=== PATIENT | male | born 1955 | race Caucasian/White ===

== ENCOUNTER → 2023-09-03 08:11 | Outpatient (REF) | payer MEDICARE, OTHER, SELFPAY | LOC: DHCBC HW 08:11 | PROVIDERS: ATTENDING PHYSICIAN Internal Medicine Cardiovascular Disease; FAMILY PHYSICIAN Physician Assistant | DX: I48.0 Paroxysmal atrial fibrillation (principal) | CPT/HCPCS: 93306 ==

== ENCOUNTER 2023-09-23 09:04 | Day surgery (SDC) | payer MEDICARE, OTHER, SELFPAY ==
[2023-09-04 10:05] VITALS: BMI 36.4
[2023-09-23 10:22] VITALS: BMI 37.0
== END 2023-09-23 10:40 | disposition home or self-care (01) ==
LOC: CATH 09:04
PROVIDERS: ATTENDING PHYSICIAN Internal Medicine Cardiovascular Disease; FAMILY PHYSICIAN Physician Assistant
DX: I48.0 Paroxysmal atrial fibrillation (principal); I10 Essential (primary) hypertension; Z72.0 Tobacco use; E66.9 Obesity, unspecified; Z68.36 Body mass index [BMI] 36.0-36.9, adult; Z82.49 Family history of ischemic heart disease and other diseases of the circulatory system; Z79.01 Long term (current) use of anticoagulants
CPT/HCPCS: 92960; 93005

== ENCOUNTER → 2024-08-04 14:49 | Outpatient (REF) | payer MEDICARE, OTHER, SELFPAY | LOC: MRI 3T 14:49 | PROVIDERS: ATTENDING PHYSICIAN Urology; FAMILY PHYSICIAN Family Medicine | DX: N28.89 Other specified disorders of kidney and ureter (principal); N28.1 Cyst of kidney, acquired | CPT/HCPCS: 74183; A9575 ==

== ENCOUNTER 2025-03-04 10:59 | Inpatient (IN) | payer MEDICARE, OTHER, SELFPAY ==
[2025-03-01] VITALS (12 sets, daily range): BP systolic 120–152; BP diastolic 75–104
[2025-03-01 09:11] LABS: Hematocrit 51.2 % (39.0-52.0); Hemoglobin 17.6 g/dL (13.0-18.0); Mean Corp Hgb Conc. 34.4 g/dL (33.0-37.0); Mean Corpuscular Volume 93.6 fL (80.0-94.0); Nucleated Red Blood Cells % 0 % (-); Platelet Count 209 10^3/uL (130-400); Red Cell Dist. Width 12.7 % (11.5-14.5)
[2025-03-01 09:43] LABS: Troponin I < 0.012 ng/ml
[2025-03-01 09:55] LABS: ALT (SGPT) 16 U/L (0-50); AST (SGOT) 21 U/L (17-59); Albumin 4.4 g/dl (3.5-5.0); Alkaline Phosphatase 77 U/L (38-126); Blood Urea Nitrogen 17 mg/dl (9-20); Calcium 9.6 mg/dl (8.4-10.2); Carbon Dioxide 28 mmol/L (22-30); Chloride 107 mmol/L (98-107); Glucose 137 mg/dl (70-99); Lipase 90 U/L (23-300); Potassium 5.0 mmol/L (3.5-5.1); Sodium 140 mmol/L (135-145); Total Protein 6.7 g/dl (6.3-8.2); eGFR > 60.00
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
[2025-03-01] MEDS: DILAUDID 0.5 MG IV ×4 (10:42→22:24)
[2025-03-01] MEDS: ZOFRAN 4 MG IV (10:42)
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
[2025-03-01] MEDS: CEFOTAN 2000 MG IV (13:51)
[2025-03-01] MEDS: STERILE WATER FOR INJECTION 10 ML IV (13:53)
--- NOTE | 2025-03-01 15:41 | CON.GS ---
Addendum entered and electronically signed by Eliseo Nguyen MD 03/01/25 19:56:
Patient seen and examined.
Patient is a 69 yo M with a PMH of obesity, actuve tobacco use, HTN, paroxysmal A-fib (on Eliquis, LD 9/9 AM), s/p ex lap with partial colectomy and partial liver resection, s/p open primary umbilical hernia repair by Dr. Lyon in 2003 and s/p
incisional hernia [place] [address] Mascorro (unknown mesh, cannot see op report). Mr. Christine presents with 2 days of epigastric and RUQ abdominal pain. He states that he was eating jalapeno poppers on Friday night when he first noticed the pain.
Patient describes the pain as sharp, R-sided and radiating throughout his abdomen and chest. At first the pain would come and go, but has become more constant. Associated nausea but no vomiting. Patient had first thought the pain was related to
his atrial fibrillation and called his continuous improvement intern who suggested he come in to the ED. He denies any pain like this before, and denies any prior history of gallbladder disease. Of note, he had a MRI back in July with noted
choledocholithiasis. It appears as though he has passed this stone. He did not see a surgeon after these findings.
Gen: NAD
Abd: soft, tender in RUQ, + Rasheed's sign, palpable GB, obese, no diffuse peritonitis, prior midline from xyphoid to infraumbilical well healed, transverse RUQ well healed
Labs and imaging were reviewed
Patient is a 69 yo M p/w acute cholecystitis
The natural history and pathophysiology of biliary and stone disease was discussed. Anatomy was reviewed using drawings. CT scan imaging reviewed. Options for management including abx alone, IR cholecystostomy tube, and cholecystectomy were
reviewed. The pros and cons of all approaches was reviewed. Specifically, we discussed the logistical aspects of kristi tube which must be maintained for 6-8 weeks versus his increased risks for bleeding, injury to surrounding structures and need
for open procedure. He is at higher risks for operative complications given his obesity and prior surgical history. Mr. Christine is unsure on which treatment option he would prefer. Recommend cholecystectomy tube, however, if patient refuses then
would proceed with cholecystectomy 48 hours after his last dose of Eliquis (likely on Friday, 03/04). At this time he is clinically stable, and will await at least 24 hours after his last dose of Eliquis prior to proceeding with kristi tube - will
reassess and finalize plan tomorrow. All questions answered.
-- Recommend kristi tube, if declines then would proceed with cholecystectomy 48 hours after his last dose of Eliquis (likely on Friday, 03/04) - decision to be finalized tomorrow after 24 hours of Eliquis washout given clinical stability
-- NPO, IVF
-- Abx: Levo/Flagyl
-- Hold Eliquis
-- Trend labs
Original Note:
Consultation
-
Date/Time Consultation Performed: 03/01/2025
Performing Provider: Eliseo Nguyen MD
Medical History
-
Chief Complaint: RUQ abdominal pain
History of Present Illness:
Patient is a 69-year-old male PMH HTN and paroxysmal A-fib on Eliquis presenting with RUQ abdominal pain that started 2 days ago. Patient was eating jalapeno poppers on Friday night when he first noticed the pain. Patient describes the pain as
sharp, right sided and radiating throughout his abdomen and chest. Patient did not take any medication for the pain. Patient stated that at first the pain would come and go, but has become more constant. Patient said the pain was associated with
nausea but no vomiting. Patient had first thought the pain was related to his atrial fibrillation and called his continuous improvement intern who suggested he come in to the ED. Patient has a history of multiple abdominal surgeries: Liver resection and colon
resection 60+ years ago, umbilical hernia repair in 2003, ventral incisional hernia repair in 2007. On imaging review, patient has had gallstones visualized since July 2023. Patient denies pain like this before, and denies any prior history of
gallbladder disease. Patient is a current smoker (1 PPD).
In the ED patient had an abdominal ultrasound which revealed new gallbladder sludge and a stable large single gallstone. Patient was started on Zofran, Dilaudid, and antibiotics.
On review of symptoms patient only endorses mild abdominal pain after receiving 2 doses of Dilaudid. Patient states that the nausea has resolved after being given Zofran. Patient denies all other ROS.
Past Medical History
Past Medical History: Arrhythmias (Paroxysmal atrial fibrillation on Eliquis) and HTN
Past Surgical History: Other (Liver resection, colon resection 60+ years ago, umbilical hernia repair in 2003, ventral incisional hernia repair in 2007)
Social History
Tobacco: Smoker (1 PPD)
Alcohol: None
Drug: None
Personal:
Living: With Family
Employment: Employed
Allergies / Home Medications
Allergy/AdvReac Type Severity Reaction Status Date / Time
Cephalosporins Allergy Unknown Verified 03/01/25 08:59
penicillin G Allergy Unknown Verified 03/01/25 08:59
Penicillins Allergy Unknown Verified 03/01/25 08:59
�Medication �Instructions �Recorded �Confirmed �Type
apixaban 5 mg tablet (Eliquis) 5 mg PO BID 09/01/23 03/01/25 History
lisinopril 10 1 tab PO DAILY 09/01/23 03/01/25 History
mg-hydrochlorothiazide 12.5 mg
tablet
atorvastatin 20 mg tablet (Lipitor) 20 mg PO QPM 03/01/25 03/01/25 History
metoprolol tartrate 100 mg tablet 100 mg PO BID 03/01/25 03/01/25 History
(Lopressor)
Review of Systems
-
History Source: Patient and Family
Constitutional: No Symptoms
EENT: No Symptoms
Respiratory: No Symptoms
Cardiac: No Symptoms
Abdomen/GI: Abdominal Pain (Upper right quadrant), Nausea and Constipated (Constipation at baseline)
: No Symptoms
Musculoskeletal: No Symptoms
Skin: No Symptoms
Neurological: No Symptoms
Endocrine: No Symptoms
Hematologic/Lymphatic: No Symptoms
A 10 point review of systems was completed, and was negative except as per HPI.
Physical Exam
Vital Signs
Temp Pulse Resp BP Pulse Ox
98.0 F 72 18 130/99 95
03/01/25 08:50 03/01/25 14:00 03/01/25 14:00 03/01/25 14:00 03/01/25 12:05
02/28/25 03/01/25 03/02/25
06:59 06:59 06:59
Actual Weight 114 kg
Lab Results
03/01/25 09:03
03/01/25 09:03
WBC 15.3 10^3/uL (4.8-10.8) H 03/01/25 09:03
Hgb 17.6 g/dL (13.0-18.0) 03/01/25 09:03
Hct 51.2 % (39.0-52.0) 03/01/25 09:03
Plt Count 209 10^3/uL (130-400) 03/01/25 09:03
Abs Immat Gran (auto) 0.1 10^3/uL (0-0.05) H 03/01/25 09:03
Neutrophils % 72.0 % (42.2-75.2) 03/01/25 09:03
Physical Exam
General: Well Developed, No Apparent Distress and Comfortable
Respiratory: Non Labored Respirations
GI: Soft, Non Distended, Tender (Mildly tender in RUQ) and Other (Multiple abdominal scars from prior surgeries)
Skin: Warm and Dry
Neuro: AO x 3
Psych: Calm
Data Reviewed
-
CT Scan: Image Personally Visualized and interpreted
Assessment / Plan
-
Patient is a 69-year-old male PMH of HTN, A-fib on Eliquis presenting with postprandial RUQ abdominal pain lasting for 2 days.
Assessment
Acute cholecystitis
S/p multiple abdominal surgeries
Leukocytosis (WBC 15.3)
Elevated total bilirubin 1.7
Plan
Patient was seen at the bedside with Dr. Nguyen and we discussed interventional options with patient and his . At this time a laparoscopic cholecystectomy would be difficult given the acute on chronic inflammation of the gallbladder, in
addition to his extensive abdominal surgical history. Additionally patient took his Eliquis this morning. One interventional option at this time would be placement of a percutaneous gallbladder drainage tube with IR with the intention of
decompressing the gallbladder over the course of ~6 weeks and completion of antibiotics, followed by laparoscopic cholecystectomy. This is the option we would recommend at this time. The second option would be laparoscopic cholecystectomy, likely
on Friday, after the antibiotics and NPO status have hopefully decreased inflammation in the area. We discussed the possible complications of going to surgery with such acute inflammation, including the possibility of a subtotal cholecystectomy. We
discussed possible complications including bile leaks, bleeding risk and damage to surrounding structures. We also discussed the possibility of having to do an open cholecystectomy. Patient will consider these options and let our team know
tomorrow what he would like to do.
Patient will be admitted to the hospital tonight. Continue antibiotics and continue holding Eliquis. Last dose Eliquis was this morning.
Keep patient NPO to not stimulate gallbladder.
[2025-03-01] MEDS: NSS 1000 IV (16:54)
[2025-03-01] MEDS: FLAGYL 500 MG 100 IV (16:56)
[2025-03-01] MEDS: LIPITOR 20 MG PO (17:59)
--- NOTE | 2025-03-01 18:07 | PTCARENOTE ---
pt admitted from ED AOx3. HR irregular, hx afib. 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 abd round obese, NPO. denies pain a this time. skin CDI no edema +PP b/L. CB in reach, instructed on use.
[2025-03-01] MEDS: LEVAQUIN 150 IV (19:30)
[2025-03-01] MEDS: LOPRESSOR 100 MG PO (19:31)
[2025-03-02] MEDS: FLAGYL 500 MG 100 IV ×4 (00:18→23:11)
[2025-03-02] MEDS: NSS 1000 IV ×2 (02:52→14:36)
[2025-03-02 06:10] VITALS: BP 133/89
[2025-03-02] MEDS: DILAUDID 0.5 MG IV ×4 (06:14→20:58)
[2025-03-02 06:49] LABS: ALT (SGPT) 15 U/L (0-50); AST (SGOT) 19 U/L (17-59); Albumin 3.6 g/dl (3.5-5.0); Alkaline Phosphatase 74 U/L (38-126); Blood Urea Nitrogen 17 mg/dl (9-20); Calcium 8.6 mg/dl (8.4-10.2); Carbon Dioxide 25 mmol/L (22-30); Chloride 106 mmol/L (98-107); Estimated Creatinine Clearance 98 ml/min; Glucose 111 mg/dl (70-99); Potassium 3.9 mmol/L (3.5-5.1); Sodium 137 mmol/L (135-145); Total Protein 5.8 g/dl (6.3-8.2); eGFR > 60.00
[2025-03-02 07:25] VITALS: BP 135/81
[2025-03-02 07:33] LABS: Hematocrit 50.7 % (39.0-52.0); Hemoglobin 17.7 g/dL (13.0-18.0); Mean Corp Hgb Conc. 34.9 g/dL (33.0-37.0); Mean Corpuscular Volume 92.5 fL (80.0-94.0); Nucleated Red Blood Cells % 0 % (-); Red Cell Dist. Width 12.8 % (11.5-14.5)
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
[2025-03-02 08:37] LABS: Platelet Count 146 10^3/uL (130-400)
[2025-03-02 09:02] LABS: Hepatitis C Antibody Negative (Negative)
[2025-03-02] MEDS: LOPRESSOR 100 MG PO ×2 (09:04→20:58)
[2025-03-02] MEDS: ORETIC 12.5 MG PO (09:05)
[2025-03-02] MEDS: ZESTRIL 10 MG PO (09:05)
--- NOTE | 2025-03-02 10:06 | CM ---
Addendum entered by Jennie Vásquez RN 03/02/25 10:10:
Patient admitted under observational status. LINDA given and explained. The patient had no questions with regards to the letter.
Original Note:
Reviewed the chart notes and spoke with the patient at the bedside. Patient resides with his spouse in a split level home with four steps to enter. The patient report no DME/VN/SNF in the past. The patient confirmed his pharmacy of choice is
[facility]. Patient anticipates having a kristi tube placed today. CM continues to be available to patient/family and is monitoring medical plan for needs at discharge.
Plan: Patient most likely will require VN services if kristi tube is placed. If needed patient agreeable to [facility] services. Referral sent via [facility].
--- NOTE | 2025-03-02 10:34 | W.PN.GS2 ---
Addendum entered and electronically signed by Ryan Molina MD 03/02/25 11:20:
I was physically present and personally performed the rodriguez portions of the surgical evaluation and/or procedure with the resident. I discussed the findings, reviewed the resident�s note, and confirmed the medical decision-making. I provided direct
supervision as required and agree with the assessment and plan as documented with the following additions/corrections:
Pt remains ttp to RUQ, WBC slightly improved, isolated elevated tbili. Discussed IR drain vs OR. Pros and cons of each approach were weight in the context of pts wishes. He is most interested in fastest recovery from this episode to allow return to
work as quickly as possible. Advised that tube would likely allow for earlier DC and fewer restrictions with earlier return to work in the immediate term. He prefers IR drain mgmt. Consult placed. D/w pt and .
Original Note:
Today's Communication / Plan
-
Will consult IR for kristi tube placement
Continue to hold Eliquis
Continue NPO, IVF
Assessment / Plan
-
Assessment
Acute cholecystitis
H/o multiple abdominal surgeries: Liver resection, colon resection, 2 hernia repairs
Paroxysmal A-fib on anticoagulation, last dose Eliquis 24 hours ago
Leukocytosis WBC 15.0
Hyperbilirubinemia T bili 2.2 mg/dl, possible Gilbert's syndrome in setting of normal liver enzymes.
Plan
Will consult IR for kristi tube placement
NPO/IVF
Continue to hold Eliquis
Continue antibiotic: levo/flagyl
Trend labs
Subjective Data
-
Date of Service: March 02, 2025
Patient is a 69-year-old male past medical history of paroxysmal A-fib on Eliquis last dose morning of 03/01, presenting with RUQ abdominal pain that started 3 days ago, found to have acute cholecystitis. Today patient was seen at the bedside with
Dr. Molina. Patient has put considerable thought into his intervention options, and would like to move forward with the kristi tube. Patient is still having considerable pain throughout the abdomen radiating from the RUQ. Patient is receiving
Dilaudid and Zofran as well as the antibiotics. Patient is still NPO. Patient has been urinating without issue. Patient denies all other ROS.
Objective Data
-
Intake and Output
03/01/25 03/02/25 03/03/25
06:59 06:59 06:59
Intake Total 1350 / 1350 100 / 100
Balance 1350 / 1350 100 / 100
Intake:
IV fluids (Total) 1100 / 1100
IV piggybacks 250 / 250 100 / 100
Other:
Number of approximated MODERATE 1 1
amounts of urine
Number of approximated LARGE 1
amounts of urine
Vital Signs
Temp Pulse Resp BP Pulse Ox
98 F 98 16 133/77 95
03/02/25 07:25 03/02/25 09:05 03/02/25 07:25 03/02/25 09:05 03/02/25 07:25
Lab Results
03/02/25 05:41
03/02/25 05:41
Calcium 8.6 mg/dl (8.4-10.2) 03/02/25 05:41
Total Bilirubin 2.2 mg/dl (0.2-1.3) H 03/02/25 05:41
AST 19 U/L (17-59) 03/02/25 05:41
ALT 15 U/L (0-50) 03/02/25 05:41
Alkaline Phosphatase 74 U/L (38-126) 03/02/25 05:41
Total Protein 5.8 g/dl (6.3-8.2) L 03/02/25 05:41
Albumin 3.6 g/dl (3.5-5.0) 03/02/25 05:41
Physical Exam
-
General: Not in acute distress
Abdominal: Mild distention, palpable gallbladder, moderate tenderness to palpation in right upper and lower quadrants. Positive Rasheed sign.
Neuro: AAOX3
Patient has a parker catheter: No
Patient has a central line: No
[2025-03-02 15:25] VITALS: BP 143/78
[2025-03-02] MEDS: LIPITOR 20 MG PO (17:58)
[2025-03-02] MEDS: LOVENOX 40 MG SC (17:58)
[2025-03-02] MEDS: STERILE WATER FOR INJECTION 20 ML IV (18:31)
[2025-03-02] MEDS: ROCEPHIN 2000 MG IV (18:31)
[2025-03-02 23:13] VITALS: BP 107/75
[2025-03-03] VITALS (14 sets, daily range): BP systolic 84–139; BP diastolic 64–90
[2025-03-03] MEDS: NSS 1000 IV ×2 (02:49→16:13)
[2025-03-03] MEDS: DILAUDID 0.5 MG IV ×3 (04:16→20:41)
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
[2025-03-03 07:56] LABS: Hematocrit 49.8 % (39.0-52.0); Hemoglobin 17.3 g/dL (13.0-18.0); Mean Corp Hgb Conc. 34.7 g/dL (33.0-37.0); Mean Corpuscular Volume 93.8 fL (80.0-94.0); Platelet Count 171 10^3/uL (130-400); Red Cell Dist. Width 12.8 % (11.5-14.5)
[2025-03-03 08:24] LABS: ALT (SGPT) 14 U/L (0-50); AST (SGOT) 21 U/L (17-59); Albumin 3.3 g/dl (3.5-5.0); Alkaline Phosphatase 70 U/L (38-126); Blood Urea Nitrogen 16 mg/dl (9-20); Calcium 8.4 mg/dl (8.4-10.2); Carbon Dioxide 26 mmol/L (22-30); Chloride 106 mmol/L (98-107); Estimated Creatinine Clearance 98 ml/min; Glucose 106 mg/dl (70-99); Magnesium 1.8 mg/dl (1.6-2.3); Potassium 3.8 mmol/L (3.5-5.1); Sodium 136 mmol/L (135-145); Total Protein 5.5 g/dl (6.3-8.2); eGFR > 60.00
[2025-03-03] MEDS: FLAGYL 500 MG 100 IV ×2 (08:45→16:13)
[2025-03-03] MEDS: LOPRESSOR 100 MG PO ×2 (08:46→20:40)
--- NOTE | 2025-03-03 09:50 | W.PN.GS2 ---
Addendum entered and electronically signed by Camron Moreno MD 03/03/25 10:34:
I was physically present and personally performed the rodriguez portions of the surgical evaluation and/or procedure with the resident. I discussed the findings, reviewed the resident�s note, and confirmed the medical decision-making. I provided direct
supervision as required and agree with the assessment and plan as documented with the following additions/corrections:
Patient with improving but persistent right upper quadrant abdominal pain.
Overall still with some abdominal bloating and distention but no nausea. Passing flatus. No bowel movement.
AF VSS
NAD AAO x 3
ABD: Softly distended with tenderness to palpation localized in the right upper quadrant
White blood cell count slightly improved at 14, elevated total bilirubin likely reactive
Assessment/plan: 69-year-old male with acute calculous cholecystitis on therapeutic anticoagulation
Patient confirms and/desire for percutaneous cholecystostomy tube management which is anticipated to occur today.
Advised and confirmed patient is aware that percutaneous cholecystostomy tube typically remains in place for 6 to 8 weeks before interval cholecystectomy
Any of the patient's or his 's concerns or questions were confirmed to be addressed
Okay to advance diet as tolerated post cholecystostomy tube placement
Original Note:
Today's Communication / Plan
-
IR today for kristi tube placement
Continue to hold Eliquis
Continue NPO, IVF
Assessment / Plan
-
Assessment
Acute cholecystitis
H/o multiple abdominal surgeries: Liver resection, colon resection, 2 hernia repairs
Paroxysmal A-fib on anticoagulation, last dose Eliquis 48 hours ago
Leukocytosis WBC 14.0
Hyperbilirubinemia T bili 1.8 mg/dl
Plan
IR consulted for kristi tube placement today
NPO/IVF
Continue to hold Eliquis
Continue antibiotic: levo/flagyl
Trend labs
Subjective Data
-
Date of Service: March 03, 2025
Patient is a 69-year-old male past medical history of paroxysmal A-fib on Eliquis last dose morning of 03/01, presenting with right upper quadrant abdominal pain that started 4 days ago, found to have acute cholecystitis. Today patient is seen at the
bedside with Dr. Moreno. Patient is still experiencing pain throughout the abdomen radiating from the RUQ, but feels like he is less distended today. Patient is still receiving Dilaudid, Zofran as well as antibiotics. Patient has been kept NPO
ahead of IR drain placement today. Patient's last BM was Friday. Patient has been urinating without issue. Patient denies all other ROS.
Objective Data
-
Intake and Output
03/02/25 03/03/25 03/04/25
06:59 06:59 06:59
Intake Total 1350 / 1350 3220 / 3220
Output Total 400 / 400
Balance 1350 / 1350 2820 / 2820
Intake:
Oral fluids 720 / 720
IV fluids (Total) 1100 / 1100 2300 / 2300
IV piggybacks 250 / 250 200 / 200
Output:
Urine, Voided 400 / 400
Other:
Number of approximated SMALL 3
amounts of urine
Number of approximated MODERATE 1 2
amounts of urine
Number of approximated LARGE 1
amounts of urine
Vital Signs
Temp Pulse Resp BP Pulse Ox
97.9 F 94 18 115/81 94
03/03/25 07:35 03/03/25 07:35 03/03/25 07:35 03/03/25 07:35 03/03/25 07:35
Lab Results
03/03/25 07:26
03/03/25 07:26
Calcium 8.4 mg/dl (8.4-10.2) 03/03/25 07:26
Magnesium 1.8 mg/dl (1.6-2.3) 03/03/25 07:26
Total Bilirubin 1.8 mg/dl (0.2-1.3) H 03/03/25 07:26
AST 21 U/L (17-59) 03/03/25 07:26
ALT 14 U/L (0-50) 03/03/25 07:26
Alkaline Phosphatase 70 U/L (38-126) 03/03/25 07:26
Total Protein 5.5 g/dl (6.3-8.2) L 03/03/25 07:
Albumin 3.3 g/dl (3.5-5.0) L 03/03/25 07:26
Physical Exam
-
General: Not in acute distress
Abdominal: Mild distention, palpable gallbladder, moderate tenderness to palpation in right upper and lower quadrants. Positive Rasheed sign.
Neuro: AAOX3
Patient has a parker catheter: No
Patient has a central line: No
--- NOTE | 2025-03-03 10:20 | CM ---
Reviewed the chart notes and spoke with the patient and spouse at the bedside. Patient for kristi tube placement today. CM continues to be available to patient/family and is monitoring medical plan for needs at discharge.
Plan: Discharge to home with [facility] services.
--- NOTE | 2025-03-03 10:24 | VNURNOTE ---
Addendum entered by Julia Ray RN 03/04/25 10:35:
Follow up: Spoke with patient and his spouse on speaker phone. Both are agreeable to [facility] services. They are aware we will call within 1-2 days for start of care visit.
Original Note:
Chart reviewed. Tatiana tube insertion pending. [facility] liaison met with patient at bedside. Discussed [facility] nurse/therapy, visits, schedule and homebound status. Patient initially declined [facility] stating his spouse is a nurse and can care for
the tube. Then pt stated he will talk to his about it.
Liaison to follow up for final decision.
[facility] referral accepted in [facility].
[2025-03-03 10:44] LABS: INR 1.16; PT 15.3 Sec (11.4-14.6)
[2025-03-03] MEDS: ZESTRIL PO (16:10)
--- NOTE | 2025-03-03 16:15 | PTCARENOTE ---
Recieved patient from IR around 1600 via stretcher. R drain with brown drainage. VS stable. Patient denies pain. Call crocker in reach.
[2025-03-03] MEDS: STERILE WATER FOR INJECTION 20 ML IV (18:22)
[2025-03-03] MEDS: ROCEPHIN 2000 MG IV (18:22)
[2025-03-03] MEDS: LIPITOR 20 MG PO (18:22)
[2025-03-04] VITALS (8 sets, daily range): BP systolic 84–145; BP diastolic 76–94
[2025-03-04] MEDS: FLAGYL 500 MG 100 IV ×2 (00:09→08:13)
[2025-03-04] MEDS: DILAUDID 0.5 MG IV ×2 (02:26→08:14)
[2025-03-04] MEDS: NSS 1000 IV (08:13)
[2025-03-04] MEDS: NSS IV (08:13)
[2025-03-04] MEDS: LOPRESSOR 100 MG PO (08:14)
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
--- NOTE | 2025-03-04 10:32 | W.PN.GS2 ---
Today's Communication / Plan
-
-- LRD
-- Flush IR kristi tube daily
-- Abx: Ceftriaxone and Flagyl, transition to Augmentin on DC for total of 7 days abx
-- OK to resume Eliquis 24 hours post- tube placement
-- Repeat labs pending
-- DC pending labs and diet tolerance
Assessment / Plan
-
Assessment:
Patient is a 69 yo M p/w acute cholecystitis, on therapeutic anticoagulation s/p IR drainage on 03/03
AVSS
Repeat labs pending
Clinical improvement with less pain. Previous laboratory improvement with downtrending WBC and bilirubin. Scant drainage from his IR tube, externally drain appears to be in appropriate position. Will continue to flush daily to maintain patency.
Likely that his large stone within the neck of the gallbladder is preventing backfill from the cystic and continued bilious drainage. If any worsening pain or worsening labs would obtain a drain study to confirm appropriate placement.
Tentative plan for discharge later today on 7 days of antibiotics if continues to be clinically improved with improved labs.
Plan
-- LRD
-- Flush IR kristi tube daily
-- Abx: Ceftriaxone and Flagyl, transition to Augmentin on DC for total of 7 days abx
-- OK to resume Eliquis 24 hours post- tube placement
-- Repeat labs pending
-- DC pending labs and diet tolerance
Subjective Data
-
Date of Service: March 04, 2025
Overall feels improved since admission. Mild abdominal soreness. No nausea or vomiting. No fevers. Passing flatus, no BM.
Objective Data
-
Intake and Output
03/03/25 03/04/25 03/05/25
06:59 06:59 06:59
Intake Total 3220 / 3220 1965 / 1965
Output Total 400 / 400 125 / 125
Balance 2820 / 2820 1840 / 1840
Intake:
Oral fluids 720 / 720 240 / 240
IV fluids (Total) 2300 / 2300 1425 / 1425
IV piggybacks 200 / 200 300 / 300
Output:
Drain Output (Total) 125 / 125
Right Placed in IR 125 / 125
Urine, Voided 400 / 400
Other:
Number of approximated SMALL 3
amounts of urine
Number of approximated MODERATE 2 2
amounts of urine
Vital Signs
Temp Pulse Resp BP Pulse Ox
98 F 97 16 145/83 97
03/04/25 07:15 03/04/25 07:15 03/04/25 07:15 03/04/25 08:14 03/04/25 08:34
Calcium 8.4 mg/dl (8.4-10.2) 03/03/25 07:26
Magnesium 1.8 mg/dl (1.6-2.3) 03/03/25 07:26
Total Bilirubin 1.8 mg/dl (0.2-1.3) H 03/03/25 07:26
AST 21 U/L (17-59) 03/03/25 07:26
ALT 14 U/L (0-50) 03/03/25 07:26
Alkaline Phosphatase 70 U/L (38-126) 03/03/25 07:26
Total Protein 5.5 g/dl (6.3-8.2) L 03/03/25 07:26
Albumin 3.3 g/dl (3.5-5.0) L 03/03/25 07:26
Physical Exam
-
Gen: NAD
Abd: soft, mild RUQ tenderness, palpable fullness remains, obese, ND, no diffuse perionitis, IR drain with scant serosang (reported bilious yesterday), insertion site intact
Patient has a parker catheter: No
Patient has a central line: No
[2025-03-04 10:44] LABS: Hematocrit 44.5 % (39.0-52.0); Hemoglobin 15.4 g/dL (13.0-18.0); Mean Corp Hgb Conc. 34.6 g/dL (33.0-37.0); Mean Corpuscular Volume 95.3 fL (80.0-94.0); Platelet Count 158 10^3/uL (130-400); Red Cell Dist. Width 13.0 % (11.5-14.5)
--- NOTE | 2025-03-04 11:07 | CM ---
Reviewed the chart notes and spoke with the patient at the bedside. IMM reviewed. Patient's spouse to provide transportation home. CM continues to be available to patient/family and is monitoring medical plan for needs at discharge.
Plan: Discharge to home with [facility] services.
[2025-03-04 11:18] LABS: ALT (SGPT) 15 U/L (0-50); AST (SGOT) 23 U/L (17-59); Albumin 2.8 g/dl (3.5-5.0); Alkaline Phosphatase 58 U/L (38-126); Blood Urea Nitrogen 20 mg/dl (9-20); Calcium 8.1 mg/dl (8.4-10.2); Carbon Dioxide 29 mmol/L (22-30); Chloride 107 mmol/L (98-107); Estimated Creatinine Clearance 110 ml/min; Glucose 109 mg/dl (70-99); Potassium 4.0 mmol/L (3.5-5.1); Sodium 138 mmol/L (135-145); Total Protein 4.8 g/dl (6.3-8.2); eGFR > 60.00
[2025-03-04] MEDS: AUGMENTIN 875 MG/125 MG 1 TABLET PO ×2 (11:29→19:42)
[2025-03-04] MEDS: ELIQUIS 5 MG PO (11:30)
--- NOTE | 2025-03-04 12:22 | PTCARENOTE ---
Addendum entered by Jackie Ta RN 03/04/25 13:40:
Hub appears to be cracked per IR, they will attempt to replace.
Original Note:
placed 3-way stop cock onto cholecystomy tub that was placed by IR 03/04. A long stringy clot at end of tube removed. Difficult flush, withdrawing to encourage, anything to loosing up. Just below hub of IR cath there is leaking noted. Continued to
flush in case clot present, pt feeling no discomfort. dressing changed. Sent image to All doctors on case. IR aware and will elevate. pt informed.
--- NOTE | 2025-03-04 14:41 | VNURNOTE ---
Chart and DC instructions reviewed. Orders noted for daily NSS flushes to kristi tube. Called pt's preferred pharmacy, [facility]. Spoke with Jai. He stated they are currently not in stock but he will order today- they should arrive Friday.
There is a $25 copay. This author spoke with patient, reviewed above, patient verbalized understanding. Updated RN Jackie, will send pt home with some extra flushes.
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
--- NOTE | 2025-03-08 09:01 | W.PN.SURGUPD ---
Surgical Update
Surgical Update
Patient seen and examined.
Patient is a 69 yo M s/p IR kristi tube p/w bloody drainage. Denies any abdominal pain or discomfort. No nausea or vomiting. No fevers or chills. Labs notable for a mild leukocytosis, normal bilirubin and LFTs and ALP. CT scan demonstrates a
decompressed gallbladder with cholecystostomy tube in the appropriate position without any perihepatic or [place] gallbladder fluid collections. Minimal drainage in the IR drain. Stitch and tube are intact. Drain flushes well. No need for further
intervention, admission, or management. Okay for discharge with outpatient follow-up as previously scheduled. All questions answered.
== END 2025-03-04 19:46 | disposition home health service (06) | DRG 445 ==
LOC: 2 SOUTH 10:59
PROVIDERS: Radiology Vascular & Interventional Radiology; ADMITTING PHYSICIAN Hospitalist; ATTENDING PHYSICIAN Hospitalist; CONSULT PHYSICIAN Surgery; EMERGENCY PHYSICIAN Emergency Medicine; FAMILY PHYSICIAN Family Medicine
PROC: 0F9430Z Drainage of Gallbladder with Drainage Device, Percutaneous Approach (ICD-10-PCS; 2025-03-03)
PROC: 0F24X0Z Change Drainage Device in Gallbladder, External Approach (ICD-10-PCS; 2025-03-04)
DX: K80.00 Calculus of gallbladder with acute cholecystitis without obstruction (principal); Q44.79 Other congenital malformations of liver; I48.0 Paroxysmal atrial fibrillation; I10 Essential (primary) hypertension; E66.9 Obesity, unspecified; F17.210 Nicotine dependence, cigarettes, uncomplicated; K59.00 Constipation, unspecified; E78.5 Hyperlipidemia, unspecified; E80.4 Gilbert syndrome; K82.8 Other specified diseases of gallbladder; I77.819 Aortic ectasia, unspecified site; V89.2XXS Person injured in unspecified motor-vehicle accident, traffic, sequela; Z68.35 Body mass index [BMI] 35.0-35.9, adult; Z90.49 Acquired absence of other specified parts of digestive tract; Z90.81 Acquired absence of spleen; Z79.01 Long term (current) use of anticoagulants; Z88.0 Allergy status to penicillin; Z88.1 Allergy status to other antibiotic agents
CPT/HCPCS: 47490; 47536; 76700; 80053; 83690; 83735; 84484; 85025; 85027; 85610; 86803; 87070; 87205; 93005; 96365; 96375; 96376; 99152; 99153; 99285; 99406; C1729; C1769; G0378

== ENCOUNTER 2025-03-07 18:07 | Emergency (ER) | payer MEDICARE, OTHER, SELFPAY ==
[2025-03-07 18:12] VITALS: BP 153/95
[2025-03-07 20:31] VITALS: BMI 35.6
[2025-03-07 20:38] VITALS: BP 147/99
[2025-03-07 21:00] VITALS: BP 145/97
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
[2025-03-07] MEDS: NSS 500 IV (21:21)
[2025-03-07 21:28] LABS: Hematocrit 46.8 % (39.0-52.0); Hemoglobin 16.2 g/dL (13.0-18.0); Mean Corp Hgb Conc. 34.6 g/dL (33.0-37.0); Mean Corpuscular Volume 92.1 fL (80.0-94.0); Nucleated Red Blood Cells % 0 % (-); Platelet Count 196 10^3/uL (130-400); Red Cell Dist. Width 12.9 % (11.5-14.5)
[2025-03-08] LABS: ALT (SGPT) 30 U/L (0-50); AST (SGOT) 56 U/L (17-59); Albumin 3.3 g/dl (3.5-5.0); Alkaline Phosphatase 91 U/L (38-126); Blood Urea Nitrogen 14 mg/dl (9-20); Calcium 8.7 mg/dl (8.4-10.2); Carbon Dioxide 29 mmol/L (22-30); Chloride 105 mmol/L (98-107); Estimated Creatinine Clearance 102 ml/min; Glucose 99 mg/dl (70-99); Lipase 60 U/L (23-300); Potassium 3.9 mmol/L (3.5-5.1); Sodium 138 mmol/L (135-145); Total Protein 5.5 g/dl (6.3-8.2); eGFR > 60.00
[2025-03-08 07:18] VITALS: BP 126/97
== END 2025-03-08 09:27 | disposition home or self-care (01) ==
LOC: EMR 18:07
PROVIDERS: EMERGENCY PHYSICIAN Emergency Medicine; FAMILY PHYSICIAN Family Medicine
DX: T85.590A Other mechanical complication of bile duct prosthesis, initial encounter (principal); X58.XXXA Exposure to other specified factors, initial encounter; I10 Essential (primary) hypertension; I48.91 Unspecified atrial fibrillation; Z90.49 Acquired absence of other specified parts of digestive tract
CPT/HCPCS: 99284; 96360; 96361; 74177; 80053; 83690; 85025; Q9967

== ENCOUNTER → 2025-04-15 13:39 | Outpatient (REF) | payer MEDICARE, OTHER, SELFPAY | LOC: HWRCS 13:39 | PROVIDERS: ATTENDING PHYSICIAN Internal Medicine; FAMILY PHYSICIAN Physician Assistant; REFERRING PHYSICIAN Student in an Organized Health Care Education/Training Program | DX: I48.0 Paroxysmal atrial fibrillation (principal); Z01.818 Encounter for other preprocedural examination; I10 Essential (primary) hypertension; I77.810 Thoracic aortic ectasia; I34.0 Nonrheumatic mitral (valve) insufficiency | CPT/HCPCS: 93306 ==

== ENCOUNTER 2025-05-03 12:03 | Inpatient (IN) | payer MEDICARE, OTHER, SELFPAY ==
[2025-04-29] VITALS (13 sets, daily range): BP systolic 30–152; BP diastolic 79–100; BMI 31.2
[2025-04-29] MEDS: TYLENOL 1000 MG PO (13:28)
[2025-04-29] MEDS: NORMOSOL-R/PLASMALYTE-A 1000 IV ×2 (13:28→20:07)
--- NOTE | 2025-04-29 17:43 | W.IMMPOSTOP ---
Surgical Immed Post Op Note
-
Primary Surgeon: Patrick
Assisting Surgeon: JOSSELIN Villatoro
Pre-op Diagnosis: Cholecystitis
Post-op Diagnosis: Cholecystitis
Procedure Performed: Laparoscopic cholecystectomy with IOC and extensive lysis of adhesions
Anesthesia Type: General
Specimen / Cultures:
1. Gallbladder
Estimated Blood Loss: 23 cc
Complications: None
Operative Findings:
1. Extensive abdominal adhesions from prior surgery involving omentum and colon, lysis for > 90 min
2. Liver fused to anterior abdominal wall, liver shrunken and chronically inflamed
3. Top down cholecystectomy, critical view achieved
4. IOC with distal non-obstructive filling defect distally
5. Duct and artery taken with clips
6. 19 Fr Galdino drain into operative field
[2025-04-29] MEDS: DILAUDID 0.25 MG IV ×2 (17:54→18:15)
--- NOTE | 2025-04-29 19:35 | PTCARENOTE ---
Pt arrived to 2S @ 1932 from PACU. Pt AOx3, VSS, NC @ 2L, IVF per order, RLQ MAJOR drain with sanguineous output noted. Pt oriented to room, call crocker within reach, bed locked in lowest position. Care ongoing.
[2025-04-29] MEDS: LOPRESSOR 100 MG PO (20:08)
[2025-04-29] MEDS: TYLENOL 650 MG PO (20:08)
[2025-04-29] MEDS: ZOSYN 50 IV (20:15)
[2025-04-29] MEDS: LIPITOR 20 MG PO (20:23)
[2025-04-30] MEDS: TYLENOL 650 MG PO ×5 (00:25→20:31)
[2025-04-30] MEDS: ZOSYN 50 IV ×4 (01:22→20:30)
[2025-04-30] MEDS: MAALOX 30 ML PO (02:38)
[2025-04-30] MEDS: DILAUDID 0.5 MG IV (02:54)
[2025-04-30 03:00] VITALS: BP 133/98
[2025-04-30] MEDS: TYLENOL PO (05:10)
[2025-04-30 06:25] LABS: Hematocrit 49.1 % (39.0-52.0); Hemoglobin 16.6 g/dL (13.0-18.0); Mean Corp Hgb Conc. 33.8 g/dL (33.0-37.0); Mean Corpuscular Volume 94.8 fL (80.0-94.0); Platelet Count 174 10^3/uL (130-400); Red Cell Dist. Width 13.1 % (11.5-14.5)
[2025-04-30 06:53] LABS: ALT (SGPT) 82 U/L (0-50); AST (SGOT) 82 U/L (17-59); Albumin 3.5 g/dl (3.5-5.0); Alkaline Phosphatase 83 U/L (38-126); Blood Urea Nitrogen 25 mg/dl (9-20); Calcium 8.5 mg/dl (8.4-10.2); Carbon Dioxide 27 mmol/L (22-30); Chloride 105 mmol/L (98-107); Estimated Creatinine Clearance 88 ml/min; Glucose 136 mg/dl (70-99); Potassium 4.1 mmol/L (3.5-5.1); Sodium 137 mmol/L (135-145); Total Protein 5.8 g/dl (6.3-8.2); eGFR > 60.00
[2025-04-30 07:10] VITALS: BP 142/99
[2025-04-30] MEDS: NORMOSOL-R/PLASMALYTE-A 1000 IV ×2 (09:06→17:45)
[2025-04-30] MEDS: LOPRESSOR 100 MG PO ×2 (09:06→20:32)
--- NOTE | 2025-04-30 10:01 | W.PN.GS2 ---
Addendum entered and electronically signed by Camron Moreno MD 04/30/25 14:36:
Patient seen and examined with surgical PA. Agree with documented progress note.
Patient sitting up out of bed in chair at bedside. present.
Mild postoperative incisional pain. No nausea but not much appetite yet.
Offers no additional specific complaints or concerns
AFVSS
NAD AAO x 3
ABD soft, incisional tenderness; MAJOR with serosanguineous fluid. Nonbilious
Reactive leukocytosis, monitor. Electrolytes unremarkable. Expected bump in LFTs given presence of choledocholithiasis.
A/P: POD #1 status post lap kristi with cholangiogram identifying choledocholithiasis.
Clear liquid diet for comfort
Discussed with GI service, patient is scheduled for ERCP on Friday
Lovenox for VTE prophylaxis but Eliquis being held in setting of upcoming scheduled procedure
Original Note:
Today's Communication / Plan
-
clears
ERCP on Friday
Assessment / Plan
-
POD#1 laparoscopic cholecystectomy due to cholecystitis
Vitals: normal
HGb: 16.6, WBC :15.0 (13.1), Creatinine 1.0
Drain output: 200ml
Plan:
-Advance to clears with IVFs
-GI to see in consultation - per patient, ERCP on Friday
-Maintain OR drain
-Continue IV zosyn
-Lovenox for DVT prophylaxis
-OR pathology pending
-OOB as tolerated
-Hold home Eliquis for now
-Pain control: Tylenol standing, Dilaudid and oxycodone PRN
Subjective Data
-
Date of Service: April 30, 2025
Patient states he is sore but his pain is controlled. Denies nausea or vomiting. Has flatus but no bowel movements yet.
Objective Data
-
Intake and Output
04/29/25 04/30/25 05/01/25
06:59 06:59 06:59
Intake Total 2450 / 2450
Output Total 400 / 400
Balance 2049 / 2049
Intake:
Oral fluids 1200 / 1200
IV fluids (Total) 1150 / 1150
IV piggybacks 100 / 100
Output:
Drain Output (Total) 200 / 200
Right Abdomen Teja-Gupta 200 / 200
Urine, Voided 200 / 200
Other:
Number of approximated MODERATE 1
amounts of urine
Number of immeasurable emeses? 1
Vital Signs
Temp Pulse Resp BP Pulse Ox
97.9 F 88 16 142/99 93
04/30/25 07:10 04/30/25 07:10 04/30/25 07:10 04/30/25 07:10 04/30/25 07:10
Lab Results
04/30/25 05:56
04/30/25 05:56
Calcium 8.5 mg/dl (8.4-10.2) 04/30/25 05:56
Total Bilirubin 1.7 mg/dl (0.2-1.3) H 04/30/25 05:56
AST 82 U/L (17-59) H 04/30/25 05:56
ALT 82 U/L (0-50) H 04/30/25 05:56
Alkaline Phosphatase 83 U/L (38-126) 04/30/25 05:56
Total Protein 5.8 g/dl (6.3-8.2) L 04/30/25 05:56
Albumin 3.5 g/dl (3.5-5.0) 04/30/25 05:56
Physical Exam
-
Gen: NAD
Abd: soft, mild tenderness around incisions, nondistended, no diffuse peritonitis, IR drain serosanginous
Patient has a parker catheter: No
Patient has a central line: No
[2025-04-30] MEDS: ORETIC 12.5 MG PO (10:02)
[2025-04-30] MEDS: ZESTRIL 10 MG PO (10:02)
--- NOTE | 2025-04-30 10:56 | CON.GI ---
Consultation
-
Date/Time Consultation Requested: 04/30/2025
Date/Time Consultation Performed: 04/30/2025
Performing Provider: Jonathan Vergara
Reason for Consultation: choledocholithiasis
Medical History
Chief Complaint / HPI
Chief Complaint: choledocholithiasis
History of Present Illness:
Patient is a 69 year old male with h/o paroxysmal A-fib (on Eliquis, LD 03/01 AM), obesity, tobacco use, HTN, surgical hx of ex lap with partial colectomy and partial liver resection, s/p open primary umbilical hernia repair by Dr. Lyon in 2003 and
s/p incisional hernia repair [place] [address] Mascorro (unknown mesh, cannot see op report) who p/w cholecystectomy and found to have retained choledocholithiasis on IOC. He was admitted w/ biliary pain in 02/2025 and had perc cholecystostomy tube
placed, which eventually led to cholecystectomy on 04/29. IOC showed stone.
Past Medical History
Past Medical History: Arrhythmias and HTN
Past Surgical History: Other
Social History
Tobacco: Smoker
Alcohol: None
Drug: None
Allergies / Home Medications
Allergy/AdvReac Type Severity Reaction Status Date / Time
penicillin G Allergy Unknown Verified 04/29/25 13:09
�Medication �Instructions �Recorded
apixaban 5 mg tablet (Eliquis) 5 mg PO BID Blood Clot 09/01/23
Prevention/Tx
atorvastatin 20 mg tablet (Lipitor) 20 mg PO QPM High Cholesterol 03/01/25
metoprolol tartrate 100 mg tablet 100 mg PO BID Blood Pressure 03/01/25
(Lopressor)
sodium chloride 0.9 % (flush) 10 ml intra-catheter DAILY 6 weeks 03/04/25
(Normal Saline Flush 0.9 % #450 mL
injection syringe)
lisinopril 10 1 tab PO DAILY 04/27/25
mg-hydrochlorothiazide 12.5 mg
tablet
Review of Systems
Vital Signs
Temp Pulse Resp BP Pulse Ox
97.9 F 82 16 148/94 93
04/30/25 07:10 04/30/25 10:02 04/30/25 07:10 04/30/25 10:02 04/30/25 07:10
Physical Exam
Exam
General: Well Developed and Well Nourished
HEENT: Normocephalic
Respiratory: Clear
Cardiac: S1/S2
GI: Soft, Non Tender, Non Distended and Normal Bowel Sounds (MAJOR drain)
Results
WBC 15.0 10^3/uL (4.8-10.8) H 04/30/25 05:56
Hgb 16.6 g/dL (13.0-18.0) 04/30/25 05:56
Hct 49.1 % (39.0-52.0) 04/30/25 05:56
MCV 94.8 fL (80.0-94.0) H 04/30/25 05:56
Plt Count 174 10^3/uL (130-400) 04/30/25 05:56
Sodium 137 mmol/L (135-145) 04/30/25 05:56
Potassium 4.1 mmol/L (3.5-5.1) 04/30/25 05:56
Chloride 105 mmol/L (98-107) 04/30/25 05:56
Carbon Dioxide 27 mmol/L (22-30) 04/30/25 05:56
BUN 25 mg/dl (9-20) H 04/30/25 05:56
Creatinine 1.0 mg/dL (0.7-1.3) 04/30/25 05:56
Calcium 8.5 mg/dl (8.4-10.2) 04/30/25 05:56
Total Bilirubin 1.7 mg/dl (0.2-1.3) H 04/30/25 05:56
AST 82 U/L (17-59) H 04/30/25 05:56
ALT 82 U/L (0-50) H 04/30/25 05:56
Alkaline Phosphatase 83 U/L (38-126) 04/30/25 05:56
Diagnostic Image Results:
Prior GI Procedures:
EGD:
Colonoscopy:
Assessment / Plan
-
69 year old male with h/o paroxysmal A-fib (on Eliquis, LD 9/ AM), obesity, tobacco use, HTN, and signficant surgical hx who previously had perc cholecystostomy tube placed for biliary pain and had eventual cholecystectomy, now found to have
retained choledocholithiasis on IOC.
Impression / Rec:
1. Retained choledocholithiasis - noted on IOC. The fluoroscopic images were reviewed by me. Obvious filling defect is present. Will plan on ERCP for stone extraction on 05/02. NPO from midnight. Can have diet as deemed appropriate by surgery
until then.
Total Time Spent with Patient (in minutes): 55
-
-
Thank you for consultation and allowing me to participate in the patient's care. Please call the soil fertility extension specialist GI physician during the after hours with any questions or concerns.
[2025-04-30 11:10] VITALS: BP 146/94
--- NOTE | 2025-04-30 14:35 | CM ---
Initial assessment completed with pt at bedside.
Pt is a 69yr old male admitted for outpt Lap Kristi.
Pt lives with his in a split level home that is 4ste to the main living and another 4 to his bed/bath.
At baseline, pt is indep and does not have DME. Pt did have [facility] in Feb following surgery and dc with Kristi tube. Per pt, he had kristi tube for 6weeks before it was removed and was self managing well. Pt has new kristi tube this admission, but is
hopeful it is removed prior to dc.
Pt for ERCP Friday
PCP; [facility]
Pharm; [facility]
PLAN; Home with no needs anticipated
[2025-04-30] MEDS: ROXICODONE 5 MG PO (16:19)
[2025-04-30 16:56] VITALS: BP 153/93
[2025-04-30] MEDS: LOVENOX 40 MG SC (17:45)
[2025-04-30] MEDS: LIPITOR 20 MG PO (17:46)
[2025-04-30 19:00] VITALS: BP 143/83
--- NOTE | 2025-04-30 20:55 | PTCARENOTE ---
pt vomited immediately after receiving his 1999 meds (see MAR); he stated that he felt much better and it relieved his pain; KNOCK OUT HAND Velvet Jensen notified, blood glucose obtained, IV toprol added to MAR, VSS, care ongoing;
[2025-04-30 20:57] LABS: Glucose - Point of Care 117 mg/dl (70-99)
[2025-04-30 23:00] VITALS: BP 130/90
[2025-05-01] MEDS: TYLENOL PO ×3 (00:26→12:24)
[2025-05-01] MEDS: ZOSYN 50 IV ×4 (02:31→20:26)
[2025-05-01] MEDS: ZOFRAN 4 MG IV ×2 (02:35→09:18)
[2025-05-01 03:04] VITALS: BP 141/93
[2025-05-01] MEDS: NORMOSOL-R/PLASMALYTE-A 1000 IV ×2 (05:42→17:40)
[2025-05-01 06:30] LABS: Hematocrit 48.3 % (39.0-52.0); Hemoglobin 16.2 g/dL (13.0-18.0); Mean Corp Hgb Conc. 33.5 g/dL (33.0-37.0); Mean Corpuscular Volume 97.8 fL (80.0-94.0); Platelet Count 175 10^3/uL (130-400); Red Cell Dist. Width 13.5 % (11.5-14.5)
[2025-05-01 07:10] VITALS: BP 136/82
[2025-05-01 07:18] LABS: ALT (SGPT) 61 U/L (0-50); AST (SGOT) 51 U/L (17-59); Albumin 3.4 g/dl (3.5-5.0); Alkaline Phosphatase 78 U/L (38-126); Blood Urea Nitrogen 21 mg/dl (9-20); Calcium 8.7 mg/dl (8.4-10.2); Carbon Dioxide 30 mmol/L (22-30); Chloride 102 mmol/L (98-107); Estimated Creatinine Clearance 98 ml/min; Glucose 118 mg/dl (70-99); Potassium 3.8 mmol/L (3.5-5.1); Sodium 134 mmol/L (135-145); Total Protein 5.7 g/dl (6.3-8.2); eGFR > 60.00
--- NOTE | 2025-05-01 09:55 | W.PN.GS2 ---
Today's Communication / Plan
-
`
Assessment / Plan
-
POD# laparoscopic cholecystectomy; cholangiogram with choledocholithiasis
AFVSS
Persistent leukocytosis likely secondary to choledocholithiasis and reactive postoperatively
MAJOR nonbilious, serosanguineous fluid
Plan:
Clear liquid diet
ERCP with GI 05/02/2025
MAJOR
-Continue IV zosyn
-Lovenox for DVT prophylaxis
-OR pathology pending
-OOB as tolerated
-Hold home Eliquis for now
Subjective Data
-
Date of Service: May 01, 2025
Patient seen and examined.
Intermittent mild nausea but no vomiting
Feels a little less distended today, passing flatus now
No bowel movement
Objective Data
-
Intake and Output
04/30/25 05/01/25 05/02/25
06:59 06:59 06:59
Intake Total 2450 / 2450 3600 / 3600
Output Total 400 / 400 1535 / 1535
Balance 2049 / 2050 2064 / 2064
Intake:
Oral fluids 1200 / 1200 1200 / 1200
IV fluids (Total) 1150 / 1150 2200 / 2200
IV piggybacks 100 / 100 200 / 200
Output:
Drain Output (Total) 200 / 200 170 / 170
Right Abdomen Teja-Gupta 200 / 200 170 / 170
Urine, Voided 200 / 200 1365 / 1365
Other:
Number of approximated MODERATE 1 2
amounts of urine
Number of immeasurable emeses? 1 2
Vital Signs
Temp Pulse Resp BP Pulse Ox
98 F 99 16 136/82 97
05/01/25 07:10 05/01/25 07:10 05/01/25 07:10 05/01/25 07:10 05/01/25 07:10
Lab Results
05/01/25 06:01
05/01/25 06:01
Calcium 8.7 mg/dl (8.4-10.2) 05/01/25 06:01
Total Bilirubin 2.2 mg/dl (0.2-1.3) H 05/01/25 06:01
AST 51 U/L (17-59) 05/01/25 06:01
ALT 61 U/L (0-50) H 05/01/25 06:01
Alkaline Phosphatase 78 U/L (38-126) 05/01/25 06:01
Total Protein 5.7 g/dl (6.3-8.2) L 05/01/25 06:01
Albumin 3.4 g/dl (3.5-5.0) L 05/01/25 06:01
Physical Exam
-
NAD AAO x 3
ABD: Softly distended, tenderness to palpation localized to incision sites. Incisions with glue dressings.
MAJOR with lightening serosanguineous fluid. Nonbilious
[2025-05-01] MEDS: ZESTRIL 10 MG PO (10:31)
[2025-05-01] MEDS: ORETIC 12.5 MG PO (10:31)
[2025-05-01] MEDS: TYLENOL 650 MG PO ×3 (10:31→20:25)
[2025-05-01] MEDS: LOPRESSOR 100 MG PO ×2 (10:31→20:25)
[2025-05-01] MEDS: NORMOSOL-R/PLASMALYTE-A IV ×2 (12:25→22:53)
[2025-05-01 15:30] VITALS: BP 117/80
[2025-05-01] MEDS: LIPITOR 20 MG PO (17:35)
[2025-05-01] MEDS: LOVENOX 40 MG SC (17:35)
[2025-05-01] MEDS: ROXICODONE 5 MG PO (20:33)
[2025-05-01 23:12] VITALS: BP 103/75
[2025-05-02] VITALS (22 sets, daily range): BP systolic 112–180; BP diastolic 76–116; BMI 32.9
[2025-05-02] MEDS: TYLENOL PO ×3 (00:05→17:42)
[2025-05-02] MEDS: ZOSYN 50 IV ×4 (02:11→19:32)
[2025-05-02] MEDS: ROXICODONE 5 MG PO (02:17)
[2025-05-02] MEDS: NORMOSOL-R/PLASMALYTE-A 1000 IV (07:22)
[2025-05-02] MEDS: ZESTRIL PO (08:17)
[2025-05-02] MEDS: TYLENOL 650 MG PO ×3 (08:20→19:32)
[2025-05-02] MEDS: LOPRESSOR 100 MG PO ×2 (08:23→17:41)
--- NOTE | 2025-05-02 10:12 | W.PN.GS2 ---
Today's Communication / Plan
-
ERCP
Assessment / Plan
-
POD#3 laparoscopic cholecystectomy; cholangiogram with choledocholithiasis
AFVSS
Persistent leukocytosis likely secondary to choledocholithiasis and reactive postoperatively
MAJOR nonbilious, serosanguineous fluid
Plan:
-N.p.o. for possible ERCP with GI today
-Continue MAJOR to bulb suction
-Continue IV zosyn
-Lovenox for DVT prophylaxis
-OR pathology pending
-OOB as tolerated
-Hold home Eliquis for now
Time Spent
Total Time Spent with Patient (in minutes): 20
Subjective Data
-
Date of Service: May 02, 2025
Interval Events:
No acute events overnight. Slept well. Pain Controlled. Denies Nausea/Vomiting, +bowel function.
Objective Data
-
Intake and Output
05/01/25 05/02/25 05/03/25
06:59 06:59 06:59
Intake Total 3600 / 3600 960 / 960
Output Total 1535 / 1535 930 / 930
Balance 2064 / 206 30 / 30
Intake:
Oral fluids 1200 / 1200 560 / 560
IV fluids (Total) 2200 / 2200 400 / 400
IV piggybacks 200 / 200
Output:
Drain Output (Total) 170 / 170 30 / 30
Right Abdomen Teja-Gupta 170 / 170 30 / 30
Urine, Voided 1365 / 1365 900 / 900
Other:
Number of approximated SMALL 2
amounts of urine
Number of approximated MODERATE 2
amounts of urine
Number of immeasurable emeses? 2
Vital Signs
Temp Pulse Resp BP Pulse Ox
97.6 F 95 18 115/76 96
05/02/25 08:07 11/10/25 08:23 05/02/25 08:07 05/02/25 08:23 05/02/25 08:07
Lab Results
05/01/25 06:01
05/01/25 06:01
Calcium 8.7 mg/dl (8.4-10.2) 05/01/25 06:01
Total Bilirubin 2.2 mg/dl (0.2-1.3) H 05/01/25 06:01
AST 51 U/L (17-59) 05/01/25 06:01
ALT 61 U/L (0-50) H 05/01/25 06:01
Alkaline Phosphatase 78 U/L (38-126) 05/01/25 06:01
Total Protein 5.7 g/dl (6.3-8.2) L 05/01/25 06:01
Albumin 3.4 g/dl (3.5-5.0) L 05/01/25 06:01
Physical Exam
-
GENERAL/NEURO: Awake, Alert, no distress
CHEST: Unlabored breathing on RA
ABDOMEN: Soft, appropriately tender, Non-Distended, incisions clean dry and intact.
Patient has a parker catheter: No
Patient has a central line: No
[2025-05-02] MEDS: DILAUDID 0.25 MG IV ×2 (12:36→12:57)
[2025-05-02] MEDS: DILAUDID 0.5 MG IV ×4 (13:38→23:31)
--- NOTE | 2025-05-02 13:42 | SUR.PHASEI ---
Pt c/o 03/02 burning abdominal pain. Called into Dr Vergara's OR. Dilaudid .5mg ordered and given. Report had been called to floor but will update on transfer
--- NOTE | 2025-05-02 13:57 | CM ---
Chart reviewed. POD#3 laparoscopic cholecystectomy; cholangiogram with choledocholithiasis
N.p.o. for possible ERCP
Plan: Home, no needs when stable
--- NOTE | 2025-05-02 14:10 | SUR.PHASEI ---
1410 Dr Vergara at bedside- discussed possiblity of pancreatitis and plan of Care, NPO for now. floor called with an update
--- NOTE | 2025-05-02 15:04 | PTCARENOTE ---
Pt returned from pacu after ERCP, VSS but bp elevated, states pain 10/10 but quickly fell asleep. IVF restarted, pt NPO until seen by Dr. Vergara.
[2025-05-02] MEDS: LIPITOR 20 MG PO (17:42)
[2025-05-02] MEDS: LOVENOX 40 MG SC (17:42)
--- NOTE | 2025-05-02 17:50 | PTCARENOTE ---
Pt's bp still elevated: 180/110, 176/114. Received order to give 2000 dose of lopressor now.
[2025-05-02] MEDS: MYLICON 80 MG PO (21:28)
[2025-05-02 23:53] LABS: Lipase 73 U/L (23-300)
[2025-05-03] MEDS: TYLENOL PO ×3 (00:47→16:06)
[2025-05-03 01:02] VITALS: BP 143/94
[2025-05-03] MEDS: ZOSYN 50 IV ×4 (02:02→19:42)
[2025-05-03 02:48] VITALS: BP 146/97
[2025-05-03] MEDS: NORMOSOL-R/PLASMALYTE-A 1000 IV ×2 (04:05→16:06)
[2025-05-03] MEDS: DILAUDID 0.5 MG IV (05:54)
[2025-05-03 07:32] VITALS: BP 134/104
[2025-05-03 07:53] LABS: Hematocrit 50.7 % (39.0-52.0); Hemoglobin 17.7 g/dL (13.0-18.0); Mean Corp Hgb Conc. 34.9 g/dL (33.0-37.0); Mean Corpuscular Volume 93.9 fL (80.0-94.0); Platelet Count 183 10^3/uL (130-400); Red Cell Dist. Width 13.4 % (11.5-14.5)
[2025-05-03] MEDS: LOPRESSOR 100 MG PO ×2 (08:14→19:43)
[2025-05-03] MEDS: ZESTRIL 10 MG PO (08:14)
[2025-05-03] MEDS: TYLENOL 650 MG PO ×3 (08:14→19:43)
[2025-05-03] MEDS: PROTONIX 40 MG PO (08:14)
[2025-05-03] MEDS: NORMOSOL-R/PLASMALYTE-A IV (08:16)
[2025-05-03 08:29] LABS: ALT (SGPT) 40 U/L (0-50); AST (SGOT) 35 U/L (17-59); Albumin 3.2 g/dl (3.5-5.0); Alkaline Phosphatase 111 U/L (38-126); Blood Urea Nitrogen 27 mg/dl (9-20); Calcium 8.6 mg/dl (8.4-10.2); Carbon Dioxide 27 mmol/L (22-30); Chloride 102 mmol/L (98-107); Estimated Creatinine Clearance 98 ml/min; Glucose 155 mg/dl (70-99); Potassium 3.8 mmol/L (3.5-5.1); Sodium 137 mmol/L (135-145); Total Protein 5.8 g/dl (6.3-8.2); eGFR > 60.00
--- NOTE | 2025-05-03 08:40 | W.PN.GS2 ---
Addendum entered and electronically signed by Eliseo Nguyen MD 05/03/25 16:59:
CDI: Patient admitted after elective cholecystectomy following a prior episode of acute cholecystitis
Original Note:
Today's Communication / Plan
-
-Clears
-OOB as tolerated
-Home BB ordered if issues with HTN would resume his home Lisinopril-HCTZ
-DVT: Lovenox, hold home Eliquis for now
-GI: PPI
Assessment / Plan
-
POD#4 laparoscopic cholecystectomy; cholangiogram with choledocholithiasis
PPD#1 ERCP with stone removal
Intermittently tachycardic and hypertensive, afebrile
WBC up, Hb up to 17, CMP pending
MAJOR nonbilious, serosanguineous fluid
Worsening pain posterior ERCP concerning for possible pancreatitis. CMP and lipase pending. Recommend continuing on clears. Increasing IV fluids given likely dehydration with increase in Hb as well as appropriate resuscitation given concern for
above. Will need to monitor his hemodynamics closely. May need a medicine consult for his pancreatitis and A-fib worsens.
Plan:
-Clears
-Continue MAJOR to bulb suction
-Abx: Zosyn
-OOB as tolerated
-Home BB ordered if issues with HTN would resume his home Lisinopril-HCTZ
-DVT: Lovenox, hold home Eliquis for now
-GI: PPI
Subjective Data
-
Date of Service: May 03, 2025
Feels worse today, pain and weakness. No nausea or vomiting. Passing small amounts of flatus, no BM. Afebrile. Ambulating. Voiding.
Objective Data
-
Intake and Output
05/02/25 05/03/25 05/04/25
06:59 06:59 06:59
Intake Total 960 / 960 1330 / 1330
Output Total 930 / 930 910 / 910
Balance 420 / 420
Intake:
Oral fluids 560 / 560 120 / 120
IV fluids (Total) 400 / 400 1160 / 1160
Normosal 200 / 200
IV piggybacks 50 / 50
Output:
Drain Output (Total)
Right Abdomen Teja-Gupta
Urine, Voided 900 / 900 900 / 900
Other:
Number of approximated SMALL 2
amounts of urine
Vital Signs
Temp Pulse Resp BP Pulse Ox
97.6 F 122 18 134/104 96
05/03/25 07:32 05/03/25 07:32 05/03/25 07:32 05/03/25 07:32 05/03/25 07:32
Lab Results
05/03/25 06:43
05/03/25 06:43
Calcium 8.6 mg/dl (8.4-10.2) 05/03/25 06:43
Total Bilirubin 3.0 mg/dl (0.2-1.3) H 05/03/25 06:43
AST 35 U/L (17-59) 05/03/25 06:43
ALT 40 U/L (0-50) 05/03/25 06:43
Alkaline Phosphatase 111 U/L (38-126) 05/03/25 06:43
Total Protein 5.8 g/dl (6.3-8.2) L 05/03/25 06:43
Albumin 3.2 g/dl (3.5-5.0) L 05/03/25 06:43
Physical Exam
-
Gen: NAD, uncomfortable with pain
Abd: soft, tender diffusely (mostly in epigastrium), mild/moderate distension, non-peritoneal, incisions c/d/i - no erythema, ecchymosis or drainage, MAJOR old sanguinous blood, non-bilious
Patient has a parker catheter: No
Patient has a central line: No
[2025-05-03 08:43] LABS: Lipase 41 U/L (23-300)
--- NOTE | 2025-05-03 09:41 | CM ---
Cm reviewed medical records. Patient remains acutely ill at this time. CM will continue to follow for needs.
PLAN: Home anticipating home with no needs.
--- NOTE | 2025-05-03 10:07 | W.PN.GI.CBS2 ---
Today's Communication / Plan
-
Add miralax
C/w CLD
Increase protonix to 40mg IV BID
Assessment / Plan
-
69 year old male with h/o paroxysmal A-fib (on Eliquis, LD 9/9 AM), obesity, tobacco use, HTN, and significant surgical hx who previously had perc cholecystostomy tube placed for biliary pain and had eventual cholecystectomy, now found to have
retained choledocholithiasis on IOC. ERCP done 05/02/25 with duodenal ulcer s/p sphincterotomy and balloon extraction of choledocholithiasis. Active issue is post ERCP abd pain
Impression
- Choledocholithiasis
s/p ERCP 05/02
- Post ERCP abd pain
- Duodenal ulcer
- pAfib on eliquis
- Obesity
- HTN
Recommendations
- Trend LFT
- Lipase normal x2
- Recommend miralax daily basis
- Increase protonix to 40mg IV BID
- CLD no reds
- C/w IVF
- Pain management per primary team
- Anticipate diet advancement tomorrow
Will follow with you.
Subjective
Subjective
Date of Service: May 03, 2025
Post ERCP had 15 out of 10 abd pain. Today improved to 7 out of 10. Feels gassy and improves with gas ex. No BM in about one week. Tolerating CLD
Objective
Data Reviewed
Laboratory Data:
Laboratory Results
05/03/25 06:43
05/03/25 06:43
Laboratory Results
Total Bilirubin 3.0 mg/dl (0.2-1.3) H 05/03/25 06:43
AST 35 U/L (17-59) 05/03/25 06:43
ALT 40 U/L (0-50) 05/03/25 06:43
Alkaline Phosphatase 111 U/L (38-126) 05/03/25 06:43
Lipase Cancelled 05/03/25 08:26
Vital Signs and I&O:
Vital Signs
Temp Pulse Resp BP Pulse Ox
97.6 F 122 18 134/104 96
05/03/25 07:32 05/03/25 07:32 05/03/25 07:32 05/03/25 07:32 05/03/25 07:32
I&O
05/02/25 05/03/25 05/04/25
06:59 06:59 06:59
Intake Total 960 / 960 1330 / 1330
Output Total 930 / 930 910 / 910
Balance 420 / 420
Physical Exam
Physical Exam
GEN: No acute distress, conversant, pleasant
HEENT: anicteric, extraocular movements intact, clear oropharynx without exudates
GI: soft, mildly-distended, lower quadrant tender to palpation, normal active bowel sounds, no hepatosplenomegaly
EXT: warm, well perfused, trace edema bilaterally
NEURO: AAOx3, non-focal
[2025-05-03] MEDS: MIRALAX 17 GRAMS PO (10:17)
[2025-05-03 11:29] VITALS: BP 170/88
[2025-05-03] MEDS: MYLICON 80 MG PO ×2 (12:53→22:50)
--- NOTE | 2025-05-03 14:31 | PN.CDI ---
CDI
- -
CDI:
Physician Documentation Request
Admit Date: 05/03/25 12:03
Dear Doctor /PA,
Please review the following and provide your response in the progress notes.
Clinical Indicators:
Pt admitted laparoscopic cholecystectomy; cholangiogram with choledocholithiasis/Pt on IV Zosyn
Post-op report, ' Cholecystitis ...'
Clarify which of the following accurately represents the acuity of the ( Cholecystitis )
Acute
Chronic
Acute on Chronic
Other ( please specify)
Use of terms such as suspected, likely, concern for, or probable (associated with a specific diagnosis that is being evaluated, monitored, or treated as if it exists) are acceptable and can be coded in the inpatient setting, when documented at the
time of discharge.
Thank you,
Janny Steward RN
CDI Specialist
[place] [facility]
Please use your independent medical judgment in providing your response.
[2025-05-03 15:29] VITALS: BP 107/75
--- NOTE | 2025-05-03 16:13 | PTCARENOTE ---
MAJOR site dressing with moderate amount of bile colored fluid-dark yellow dripping down abdomen from drain site. Area cleaned with NSS, dressing changed. No further drainage noted from around drain tube.
--- NOTE | 2025-05-03 16:31 | PTCARENOTE ---
Patient c/o he cannot take a deep breath. RA sat 97%, lungs clear, but diminished, abdomen remains distended, hypo BS, no c/o pain or nausea at present. Patient able to take a deep breath by the end of assessment.
--- NOTE | 2025-05-03 17:59 | PTCARENOTE ---
RN ambulated with patient in halls x2. Patient tolerated sitting up in chair, but needs much encouragement to get OOB. Patient with on & off gas pain throughout day. At 1600 patient refused Tylenol, due to not having any pain. Patient encouraged to
walk again before bed. Patient states, 'I can't believe with all this modern medicine that they don't know how to get rid of this gas.' Patient also encourage throughout the day to take deep breath and use I.S. Patient properly demonstrated use of
I.S. Daughter at bedside.
[2025-05-03] MEDS: PROTONIX IV 40 MG IV (19:46)
[2025-05-03] MEDS: NSS (PRESERVATIVE FREE) 10 ML IV (19:46)
[2025-05-03 23:06] VITALS: BP 133/89
[2025-05-04] MEDS: ZOSYN 50 IV ×2 (01:55→09:26)
[2025-05-04] MEDS: TYLENOL PO ×3 (02:00→12:00)
[2025-05-04] MEDS: NORMOSOL-R/PLASMALYTE-A 1000 IV (05:16)
[2025-05-04 07:15] VITALS: BP 150/72
[2025-05-04 08:35] LABS: Hematocrit 48.3 % (39.0-52.0); Hemoglobin 16.1 g/dL (13.0-18.0); Mean Corp Hgb Conc. 33.3 g/dL (33.0-37.0); Mean Corpuscular Volume 98.6 fL (80.0-94.0); Platelet Count 192 10^3/uL (130-400); Red Cell Dist. Width 13.6 % (11.5-14.5)
[2025-05-04] MEDS: MYLICON PO (09:24)
[2025-05-04] MEDS: MYLICON 80 MG PO ×4 (09:25→21:57)
[2025-05-04] MEDS: LOPRESSOR 100 MG PO ×2 (09:25→19:26)
[2025-05-04] MEDS: ZESTRIL 10 MG PO (09:26)
[2025-05-04] MEDS: NSS (PRESERVATIVE FREE) 10 ML IV ×2 (09:27→19:27)
[2025-05-04] MEDS: PROTONIX IV 40 MG IV ×2 (09:27→19:27)
[2025-05-04] MEDS: TYLENOL 650 MG PO ×3 (09:27→19:26)
[2025-05-04] MEDS: MIRALAX PO ×2 (09:27→09:48)
[2025-05-04 09:34] LABS: ALT (SGPT) 29 U/L (0-50); AST (SGOT) 24 U/L (17-59); Albumin 2.9 g/dl (3.5-5.0); Alkaline Phosphatase 105 U/L (38-126); Blood Urea Nitrogen 33 mg/dl (9-20); Calcium 8.9 mg/dl (8.4-10.2); Carbon Dioxide 32 mmol/L (22-30); Chloride 101 mmol/L (98-107); Estimated Creatinine Clearance 73 ml/min; Glucose 119 mg/dl (70-99); Potassium 3.7 mmol/L (3.5-5.1); Sodium 139 mmol/L (135-145); Total Protein 5.3 g/dl (6.3-8.2); eGFR > 60.00
[2025-05-04] MEDS: LIPITOR PO (10:28)
[2025-05-04] MEDS: LOVENOX SC (10:29)
--- NOTE | 2025-05-04 10:34 | CM ---
SP LAp Choly and ERCP .
On full liquids .
Medicated for pain as needed.
Ambulating in halls.
Right MAJOR in place.
PLAN Home no anticipated needs
--- NOTE | 2025-05-04 13:26 | W.PN.GI.CBS2 ---
Addendum entered and electronically signed by Daya Samson Do, MD 05/05/25 12:56:
CDI inquiry
Duodenal ulcers are acute seen on EGD
Original Note:
Today's Communication / Plan
-
Adv to low fat diet
PPI BID x12wks for DU
FU with Dr Vergara OP and EGD in 3mo to ensure ulcer healing
Ok to resume eliquis if desired by primary team
Will sign off please call for ?
Assessment / Plan
-
69 year old male with h/o paroxysmal A-fib (on Eliquis, LD 9/ AM), obesity, tobacco use, HTN, and significant surgical hx who previously had perc cholecystostomy tube placed for biliary pain and had eventual cholecystectomy, now found to have
retained choledocholithiasis on IOC. ERCP done 05/02/25 with duodenal ulcer s/p sphincterotomy and balloon extraction of choledocholithiasis. Active issue is post ERCP abd pain
Impression
- Choledocholithiasis
s/p ERCP 05/02
- Post ERCP abd pain
- Duodenal ulcer
- pAfib on eliquis
- Obesity
- HTN
Recommendations
- AXR done 05/03 negative
- Trend LFT thus far stable
- Lipase normal x2
- C/w protonix to 40mg IV BID for DU seen on ERCP
- Adv to low fat diet today
- C/w IVF
- Heating pack to abd
- FU with Dr Vergara outpatient basis. May need repeat EGD in 3mo for interval follow up of duodenal ulcer
GI will sign off please call for ?
Subjective
Subjective
Date of Service: May 04, 2025
Abd pain improving. C/o gas. Walking hallways
Objective
Data Reviewed
Laboratory Data:
Laboratory Results
05/04/25 07:25
05/04/25 07:25
Laboratory Results
Total Bilirubin 2.8 mg/dl (0.2-1.3) H 05/04/25 07:25
AST 24 U/L (17-59) 05/04/25 07:25
ALT 29 U/L (0-50) 05/04/25 07:25
Alkaline Phosphatase 105 U/L (38-126) 05/04/25 07:25
Lipase Cancelled 05/03/25 08:26
Vital Signs and I&O:
Vital Signs
Temp Pulse Resp BP Pulse Ox
98 F 121 16 150/72 97
05/04/25 07:15 05/04/25 07:15 05/04/25 07:15 05/04/25 07:15 05/04/25 07:15
I&O
05/03/25 05/04/25 05/05/25
06:59 06:59 06:59
Intake Total 1330 / 1330 1940 / 2420 530 / 530
Output Total 910 / 910 330 / 350 20 / 20
Balance 420 / 420 1610 / 2070 510 / 510
Physical Exam
Physical Exam
GEN: No acute distress, conversant, pleasant
HEENT: anicteric, extraocular movements intact, clear oropharynx without exudates
GI: soft, mildly-distended, dressings c/d/i mildly tender to palpation, normal active bowel sounds, no hepatosplenomegaly
EXT: warm, well perfused, trace edema bilaterally
NEURO: AAOx3, non-focal
--- NOTE | 2025-05-04 13:48 | W.PN.GS2 ---
Today's Communication / Plan
-
-LRD
-Continue MAJOR to bulb suction, will removed on DC
-Abx: none further needed from surgical perspective
-Home HR and BP meds ordered, if continued issues will need to consult Hospitalist
-DVT: resume home Eliquis
Assessment / Plan
-
Patient is a 69 yo M
POD#5 laparoscopic cholecystectomy; cholangiogram with choledocholithiasis
PPD#2 ERCP with stone removal
Stable tachycardic and hypertensive, afebrile
WBC trending down slowly, Hb up to 16, Cr slightly up, bilirubin slightly down, LFTs and ALP normal
MAJOR nonbilious, serosanguineous fluid
Slightly improved. Continue to monitor for an additional 24 hrs.
Plan:
-LRD
-Pain control: Tylenol and Oxycodone
-Continue MAJOR to bulb suction, will removed on DC
-Abx: none further needed from surgical perspective
-OOB as tolerated
-Home HR and BP meds ordered, if continued issues will need to consult Hospitalist
-DVT: resume home Eliquis
-GI: PPI
Subjective Data
-
Date of Service: May 04, 2025
Feels improved, less pain. Passing flatus, no BM. Episode of nausea and vomiting this AM. No fevers. Ambulating. Voiding.
Objective Data
-
Intake and Output
05/03/25 05/04/25 05/05/25
06:59 06:59 06:59
Intake Total 1330 / 1330 1940 / 2420 530 / 530
Output Total 910 / 910 330 / 350 20 / 20
Balance 420 / 420 1610 / 2070 510 / 510
Intake:
Oral fluids 120 / 120 540 / 1020 480 / 480
IV fluids (Total) 1160 / 1160 1200 / 1200
Normosal 200 / 200
IV piggybacks 50 / 50 200 / 200 50 / 50
Output:
Drain Output (Total)
Right Abdomen Teja-Gupta
Urine, Voided 900 / 900 300 / 300
Other:
Number of approximated MODERATE 2
amounts of urine
Vital Signs
Temp Pulse Resp BP Pulse Ox
98 F 121 16 150/72 97
05/04/25 07:15 05/04/25 07:15 05/04/25 07:15 05/04/25 07:15 05/04/25 07:15
Lab Results
05/04/25 07:25
05/04/25 07:25
Calcium 8.9 mg/dl (8.4-10.2) 05/04/25 07:25
Total Bilirubin 2.8 mg/dl (0.2-1.3) H 05/04/25 07:25
AST 24 U/L (17-59) 05/04/25 07:25
ALT 29 U/L (0-50) 05/04/25 07:25
Alkaline Phosphatase 105 U/L (38-126) 05/04/25 07:25
Total Protein 5.3 g/dl (6.3-8.2) L 05/04/25 07:25
Albumin 2.9 g/dl (3.5-5.0) L 05/04/25 07:25
Physical Exam
-
Gen: NAD
Abd: soft, mild tenderness, mild distension, non-peritoneal, incisions c/d/i - no erythema, ecchymosis or drainage, MAJOR darker thin, non-bilious (Sugicel left in place operatively)
Patient has a parker catheter: No
Patient has a central line: No
--- NOTE | 2025-05-04 14:57 | PN.CDI ---
CDI
- -
CDI:
Physician Documentation Request
Admit Date: 05/03/25 12:03
Dear Doctor Do,
Please review the following and provide your response in the progress notes.
Clinical Indicators:
Pt admitted laparoscopic cholecystectomy; cholangiogram with choledocholithiasis/Pt on IV Zosyn
ERCP,' Many superficial duodenal ulcers were found in the first portion of the duodenum and in the second portion of the duodenum....'
Progress note GI 05/04, ' PPI BID x12wks for DUFU with Dr Jai PONCE and EGD in 3mo to ensure ulcer healing...- Duodenal ulcer..'
Clarify which of the following accurately represents the suspected acuity of the ( duodenal ulcer )
Acute
Chronic
Acute on Chronic
Other ( please specify)
Use of terms such as suspected, likely, concern for, or probable (associated with a specific diagnosis that is being evaluated, monitored, or treated as if it exists) are acceptable and can be coded in the inpatient setting, when documented at the
time of discharge.
Thank you,
Janny Steward RN
CDI Specialist
[place] [facility]
Please use your independent medical judgment in providing your response.
[2025-05-04 15:00] VITALS: BP 143/66
[2025-05-04] MEDS: NORMOSOL-R/PLASMALYTE-A IV (16:14)
[2025-05-04] MEDS: LIPITOR 20 MG PO (18:31)
[2025-05-04] MEDS: LOVENOX 40 MG SC (18:32)
[2025-05-04 23:06] VITALS: BP 139/99
[2025-05-05] MEDS: TYLENOL PO ×6 (00:55→15:01)
[2025-05-05 08:00] LABS: Hematocrit 47.3 % (39.0-52.0); Hemoglobin 15.7 g/dL (13.0-18.0); Mean Corp Hgb Conc. 33.2 g/dL (33.0-37.0); Mean Corpuscular Volume 98.7 fL (80.0-94.0); Platelet Count 217 10^3/uL (130-400); Red Cell Dist. Width 13.7 % (11.5-14.5)
[2025-05-05 08:25] LABS: ALT (SGPT) 32 U/L (0-50); AST (SGOT) 34 U/L (17-59); Albumin 2.9 g/dl (3.5-5.0); Alkaline Phosphatase 111 U/L (38-126); Blood Urea Nitrogen 35 mg/dl (9-20); Calcium 9.0 mg/dl (8.4-10.2); Carbon Dioxide 34 mmol/L (22-30); Chloride 102 mmol/L (98-107); Estimated Creatinine Clearance 88 ml/min; Glucose 92 mg/dl (70-99); Potassium 3.4 mmol/L (3.5-5.1); Sodium 137 mmol/L (135-145); Total Protein 5.7 g/dl (6.3-8.2); eGFR > 60.00
[2025-05-05 08:26] VITALS: BP 153/96
[2025-05-05] MEDS: LOPRESSOR 100 MG PO ×2 (08:28→19:55)
[2025-05-05] MEDS: MIRALAX 17 GRAMS PO (08:28)
[2025-05-05] MEDS: NSS (PRESERVATIVE FREE) 10 ML IV ×2 (08:29→19:55)
[2025-05-05] MEDS: ORETIC 12.5 MG PO (08:29)
[2025-05-05] MEDS: ZESTRIL 10 MG PO (08:29)
[2025-05-05] MEDS: PROTONIX IV 40 MG IV ×2 (08:29→19:55)
[2025-05-05] MEDS: MYLICON 80 MG PO ×4 (10:14→23:15)
[2025-05-05 11:16] LABS: Troponin I 0.012 ng/ml
--- NOTE | 2025-05-05 11:18 | W.PN.CD ---
Addendum entered and electronically signed by Giancarlo Cartwright MD 05/05/25 17:04:
I reviewed and agree with the note by JESE and it accurately reflects our care.
I saw and evaluated the patient, and I provided the substantive portion of the medical decision making. My assessment and plan is below:
69-year-old man with persistent atrial fibrillation on Eliquis, hypertension, and dilated ascending aorta who presents for laparoscopic cholecystectomy. Cardiology is consulted for A-fib with RVR and hypertension. Patient's heart rates have been
in the 110s�120s at rest and up to 140s with exertion despite his home metoprolol 100 mg twice daily. He is asymptomatic and was looking forward to going home today. He denies palpitations, chest pain, and shortness of breath.
Physical exam: Irregular rhythm, tachycardic, no murmurs, clear lungs, no lower extremity edema
Atrial fibrillation with RVR: Continue home metoprolol 100 mg twice daily. Add diltiazem 240 mg daily with 30 mg short acting tablets every 6 hours as needed. Encourage p.o. hydration. Continue Eliquis 5 mg twice daily.
Hypertension: Continue home metoprolol and lisinopril�HCTZ. Monitor with addition of diltiazem as above.
Original Note:
Today's Communication / Plan
-
Add diltiazem 120 mg PO daily and monitor HR on telemetry and BP
Impression / Plan
-
69 y/o male (patient of Dr. Cartwright) with AFIB on Eliquis, hypertension, mild ascending aortic dilation, tobacco use, and obesity who has cholecystitis (previously managed with tube) and is now s/p laparoscopic cholecystectomy with IOC and
extensive lysis of adhesions (04/29/25). ERCP done 05/02/25 with duodenal ulcer s/p sphincterotomy and balloon extraction of choledocholithiasis. He was seen in our office 04/08/25 for pre-procedure cardiac risk assessment- uploaded to chart. We are
asked to see for assistance with post-op AFIB with RVR and hypertension. He feels and looks well overall. Denies any CP, SOB, or palpitations. Still having some abdominal pain at times. Daughter at bedside.
Cholecystitis (previously managed with tube):
-s/p laparoscopic cholecystectomy with IOC and extensive lysis of adhesions (04/29/25). ERCP done 05/02/25 with duodenal ulcer s/p sphincterotomy and balloon extraction of choledocholithiasis.
-GI and surgery on the case. On PPI.
-some post-op pain at times, but improved overall
AFIB:
-previously paroxysmal, now likely persistent (in AFIB at visit 04/08/25 and on EKG this admit and on recent echo 04/15/25)
-rates mildly elevated post-op - 110's-120's. Asymptomatic. Continue metoprolol 100 mg PO BID. Add diltiazem 120 mg PO daily.
-Eliquis now resumed
HTN:
-elevated, despite meds resumed
-continue metoprolol, lisinopril/HCTZ.
-monitor with addition of CCB
Tobacco use:
-would benefit from cessation
Data:
-Echo 04/15/25: Normal biventricular size and systolic function without regional wall motion abnormality. No significant valve disease. Dilated aortic root and ascending aorta (4.1 cm and 4.2 cm respectively).
Physical Exam
Vital Signs/Labs
Vital Signs
Temp Pulse Resp BP Pulse Ox
98.4 F 119 16 153/96 97
05/05/25 08:26 05/05/25 08:28 05/05/25 08:26 05/05/25 08:28 05/05/25 08:26
05/05/25 07:40
05/05/25 07:40
LAB Results
05/05/25
10:45
Troponin I 0.012
Physical Exam
Constitutional: No acute distress
EENT: Anicteric
Cardiovascular: Rhythm/rate is irregular
Respiratory: Respiratory effort normal and Lungs clear to auscul.
Neuro/Psych: AO x 3
Data Reviewed
-
Date of Service: May 05, 2025
EKG: Tracing Personally Visualized and interpreted (AFIB 102 BPM) and Other (Telemetry: AFIB mildly fast rates- just placed on)
Medical Tests (PFT, Pathology etc): Report Reviewed by me (echo as noted)
Labs: Labs Reviewed by me
[2025-05-05] MEDS: KCL 40 MEQ PO (11:26)
[2025-05-05] MEDS: ELIQUIS 5 MG PO ×2 (11:26→19:55)
[2025-05-05 11:48] VITALS: BP 133/88
--- NOTE | 2025-05-05 12:48 | W.PN.GS2 ---
Addendum entered and electronically signed by Eliseo Nguyen MD 05/05/25 20:41:
Patient seen and examined.
Feels improved, less pain. No nausea or emesis. Passing frequent flatus, no BM. No fevers. Denies CP or SOB.
Gen: NAD
Abd: soft, mild tenderness, mild distension, non-peritoneal, incisions c/d/i - no erythema, ecchymosis or drainage, MAJOR stable darker thin fluid, non-bilious
Patient is a 69 yo M with cholecystitis/choledocholithiasis
POD#6 laparoscopic cholecystectomy; cholangiogram with choledocholithiasis
PPD#4 ERCP with stone removal
Tachycardic, BP stable, afebrile
WBC trending down slowly, Hb stable, Cr normalized, bilirubin trending slightly down, AST and ALP normal
MAJOR nonbilious, darker serosanguineous fluid, Surgicel left in place
Slightly improved.
Plan:
-LRD
-Miralax daily, MOM x1 today
-Pain control: Tylenol and Oxycodone
-Continue MAJOR to bulb suction, will removed on DC
-Abx: none further needed from surgical perspective
-OOB as tolerated
-Appreciate Cardiology following, Cardizem added today
-DVT: continue Eliquis
-GI: PPI
Original Note:
Today's Communication / Plan
-
bowel regimen
diet as tolerated
Assessment / Plan
-
Patient is a 69 yo M with cholecystitis/choledocholithiasis
POD#6 laparoscopic cholecystectomy; cholangiogram with choledocholithiasis
PPD#4 ERCP with stone removal
Tachycardic, BP stable, afebrile
WBC trending down slowly, Hb stable, Cr normalized, bilirubin trending slightly down, AST and ALP normal
MAJOR nonbilious, darker serosanguineous fluid
Slightly improved.
Plan:
-LRD
-Miralax daily, MOM x1 today
-Pain control: Tylenol and Oxycodone
-Continue MAJOR to bulb suction, will removed on DC
-Abx: none further needed from surgical perspective
-OOB as tolerated
-Appreciate cardiology following, Cardizem added today
-DVT: continue Eliquis
-GI: PPI
Subjective Data
-
Date of Service: May 05, 2025
Pt seen and examined at bedside. Denies n/v. No appetite. Tolerating diet. Passing flatus but no BM as of yet. Denies pain.
Objective Data
-
Intake and Output
05/04/25 05/05/25 05/06/25
06:59 06:59 06:59
Intake Total 1940 / 2420 1490 / 1490
Output Total 330 / 350 100 / 100
Balance 1610 / 2070 1390 / 1390
Intake:
Oral fluids 540 / 1020 1440 / 1440
IV fluids (Total) 1200 / 1200
IV piggybacks 200 / 200 50 / 50
Output:
Drain Output (Total) 30 / 50 100 / 100
Right Abdomen Teja-Gupta 30 / 50 100 / 100
Urine, Voided 300 / 300
Other:
Number of approximated MODERATE 2 2
amounts of urine
Vital Signs
Temp Pulse Resp BP Pulse Ox
98.2 F 113 18 133/88 97
05/05/25 11:48 05/05/25 11:48 05/05/25 11:48 05/05/25 11:48 05/05/25 11:48
Lab Results
05/05/25 07:40
05/05/25 07:40
Calcium 9.0 mg/dl (8.4-10.2) 05/05/25 07:40
Total Bilirubin 2.1 mg/dl (0.2-1.3) H 05/05/25 07:40
AST 34 U/L (17-59) 05/05/25 07:40
ALT 32 U/L (0-50) 05/05/25 07:40
Alkaline Phosphatase 111 U/L (38-126) 05/05/25 07:40
Total Protein 5.7 g/dl (6.3-8.2) L 05/05/25 07:40
Albumin 2.9 g/dl (3.5-5.0) L 05/05/25 07:40
Physical Exam
-
Gen: NAD
Abd: soft, no tenderness, mild distension, non-peritoneal, incisions c/d/i - no erythema, ecchymosis or drainage, MAJOR darker thin, non-bilious (Sugicel left in place operatively)
Patient has a parker catheter: No
Patient has a central line: No
[2025-05-05] MEDS: CARDIZEM CD 120 MG PO ×2 (12:57→16:50)
[2025-05-05] MEDS: MILK OF MAGNESIA 30 ML PO (13:17)
[2025-05-05 15:05] VITALS: BP 143/92
--- NOTE | 2025-05-05 15:11 | PTCARENOTE ---
telemetry placed as ordered. reading afib w/occasional pvc's in 110-120's. pt denies any palpitations, chest discomfort. care ongoing.
--- NOTE | 2025-05-05 16:06 | CM ---
F/U: Reading notes, patient is not needing any surgical intervention anymore, OOB as tolerated, but cardiology following, Marcella added today. PT/OT not recommending anything, no indication of any other DC needs at this time. PLAN: Anticipate Home
No Needs.
--- NOTE | 2025-05-05 16:54 | PTCARENOTE ---
pt out of bed and ambulatory in hallway w/RW and family member. telemetry alarming, HR 140's. pt denies chest discomfort. Dr Nguyen and Dr Cartwright notified via tiger text. new orders noted. additional 120 mg of Cardizem CD per AUG. pt and
daughters updated. care ongoing.
[2025-05-05] MEDS: LIPITOR 20 MG PO (18:29)
[2025-05-05 19:00] VITALS: BP 140/88
[2025-05-05] MEDS: TYLENOL 650 MG PO (19:55)
[2025-05-05 23:00] VITALS: BP 107/85
[2025-05-06 03:00] VITALS: BP 134/93
[2025-05-06] MEDS: TYLENOL PO ×4 (04:00→10:43)
[2025-05-06] MEDS: ORETIC 12.5 MG PO (07:58)
[2025-05-06] MEDS: MIRALAX 17 GRAMS PO (07:58)
[2025-05-06] MEDS: ELIQUIS 5 MG PO (07:58)
[2025-05-06] MEDS: CARDIZEM CD 240 MG PO (07:58)
[2025-05-06 07:59] VITALS: BP 127/82
[2025-05-06] MEDS: NSS (PRESERVATIVE FREE) 10 ML IV (08:00)
[2025-05-06] MEDS: PROTONIX IV 40 MG IV (08:00)
[2025-05-06] MEDS: LOPRESSOR 100 MG PO (08:01)
[2025-05-06] MEDS: MYLICON 80 MG PO (08:02)
[2025-05-06] MEDS: ZESTRIL 10 MG PO (08:02)
[2025-05-06 08:16] LABS: Hematocrit 46.6 % (39.0-52.0); Hemoglobin 15.1 g/dL (13.0-18.0); Mean Corp Hgb Conc. 32.4 g/dL (33.0-37.0); Mean Corpuscular Volume 96.7 fL (80.0-94.0); Platelet Count 250 10^3/uL (130-400); Red Cell Dist. Width 14.0 % (11.5-14.5)
[2025-05-06 08:38] LABS: ALT (SGPT) 38 U/L (0-50); AST (SGOT) 41 U/L (17-59); Albumin 2.8 g/dl (3.5-5.0); Alkaline Phosphatase 140 U/L (38-126); Blood Urea Nitrogen 31 mg/dl (9-20); Calcium 8.5 mg/dl (8.4-10.2); Carbon Dioxide 29 mmol/L (22-30); Chloride 103 mmol/L (98-107); Estimated Creatinine Clearance 98 ml/min; Glucose 110 mg/dl (70-99); Potassium 3.7 mmol/L (3.5-5.1); Sodium 136 mmol/L (135-145); Total Protein 5.4 g/dl (6.3-8.2); eGFR > 60.00
--- NOTE | 2025-05-06 09:25 | W.PN.GS2 ---
Addendum entered and electronically signed by Eliseo Nguyen MD 05/06/25 09:54:
Patient seen and examined.
Reports slow improvement, less abdominal pain. No nausea or vomiting. Continues to pass flatus, though no BM. Afebrile. Ambulating.
Gen: NAD
Abd: soft, mild tenderness, ND, non-peritoneal, incisions c/d/i - no erythema, ecchymois or drainage, MAJOR with dark thin output (Surgicel staining), non-bilious
Patient is a 69 yo M with cholecystitis/choledocholithiasis
POD#7 laparoscopic cholecystectomy; cholangiogram with choledocholithiasis
PPD#5 ERCP with stone removal
Tachycardia resolved, VSS. afebrile
WBC trending down off abx, Hb stable, Cr normalized, bilirubin trending down, AST and ALP normal
MAJOR nonbilious, darker serosanguineous fluid; removed at bedside
Continues to improve
Plan:
-LRD
-Miralax daily
-Pain control: Tylenol and Oxycodone
-MAJOR removed at bedside
-Abx: none further needed from surgical perspective
-OOB as tolerated
-Appreciate cardiology following, Cardizem added yesterday with good effect
-DVT: continue Eliquis
-GI: PPI
Anticipate d/c later today pending cardiology recs
Original Note:
Today's Communication / Plan
-
dispo planning
Assessment / Plan
-
Patient is a 69 yo M with cholecystitis/choledocholithiasis
POD#7 laparoscopic cholecystectomy; cholangiogram with choledocholithiasis
PPD#5 ERCP with stone removal
Tachycardia resolved, VSS. afebrile
WBC trending down off abx, Hb stable, Cr normalized, bilirubin trending down, AST and ALP normal
MAJOR nonbilious, darker serosanguineous fluid; removed at bedside
Continues to improve
Plan:
-LRD
-Miralax daily
-Pain control: Tylenol and Oxycodone
-MAJOR removed at bedside
-Abx: none further needed from surgical perspective
-OOB as tolerated
-Appreciate cardiology following, Cardizem added yesterday with good effect
-DVT: continue Eliquis
-GI: PPI
Anticipate d/c later today pending cardiology recs
Subjective Data
-
Date of Service: May 06, 2025
Pt seen and examined at bedside with Dr. Nguyen. Denies n/v. Tolerating diet. Passing flatus, no BM as of yet. Denies pain.
Objective Data
-
Intake and Output
05/05/25 05/06/25 05/07/25
06:59 06:59 06:59
Intake Total 1490 / 1490 360 / 360
Output Total 100 / 100
Balance 1390 / 1390 333 / 333
Intake:
Oral fluids 1440 / 1440 360 / 360
IV piggybacks 50 / 50
Output:
Drain Output (Total) /
Right Abdomen Teja-Gupta /
Other:
Number of approximated SMALL 2
amounts of urine
Number of approximated MODERATE 2 1
amounts of urine
Number of approximated LARGE 1
amounts of urine
Vital Signs
Temp Pulse Resp BP Pulse Ox
98.0 F 88 18 127/82 94
05/06/25 07:59 05/06/25 07:59 05/06/25 07:59 05/06/25 07:59 05/06/25 08:10
Lab Results
05/06/25 07:33
05/06/25 07:33
Calcium 8.5 mg/dl (8.4-10.2) 05/06/25 07:33
Total Bilirubin 1.8 mg/dl (0.2-1.3) H 05/06/25 07:33
AST 41 U/L (17-59) 05/06/25 07:33
ALT 38 U/L (0-50) 05/06/25 07:33
Alkaline Phosphatase 140 U/L (38-126) H 05/06/25 07:33
Total Protein 5.4 g/dl (6.3-8.2) L 05/06/25 07:33
Albumin 2.8 g/dl (3.5-5.0) L 05/06/25 07:33
Physical Exam
-
Gen: NAD
Abd: soft, no tenderness, no distension, non-peritoneal, incisions c/d/i - no erythema, ecchymosis or drainage, MAJOR darker thin, non-bilious (Sugicel left in place operatively)
Patient has a parker catheter: No
Patient has a central line: No
--- NOTE | 2025-05-06 10:18 | W.PN.CD ---
Today's Communication / Plan
-
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
He will trend HR/BPs at home and we will see him in 3-4 weeks for follow-up to discuss cardioversion if still in AF
Impression / Plan
-
69-year-old man with persistent atrial fibrillation on Eliquis, hypertension, and dilated ascending aorta who presents for laparoscopic cholecystectomy. Cardiology is consulted for A-fib with RVR and hypertension.
Assistant Director Of Nursing: Dr. Cartwright
AFIB:
-previously paroxysmal, now likely persistent (in AFIB at visit 04/08/25 and on EKG this admit and on recent echo 04/15/25)
-rates mildly elevated post-op - 110's-120's. Asymptomatic. Continue metoprolol 100 mg PO BID. Diltiazem added yesterday and increased to 240mg daily. Continue on dc.
-Eliquis 5mg BID
Cholecystitis (previously managed with tube):
-s/p laparoscopic cholecystectomy with IOC and extensive lysis of adhesions (04/29/25). ERCP done 05/02/25 with duodenal ulcer s/p sphincterotomy and balloon extraction of choledocholithiasis.
-GI and surgery on the case. On PPI.
-some post-op pain at times, but improved overall
HTN:
-elevated, despite meds resumed
-continue metoprolol, lisinopril/HCTZ.
-monitor with addition of CCB
Tobacco use:
-would benefit from cessation
Data:
-Echo 04/15/25: Normal biventricular size and systolic function without regional wall motion abnormality. No significant valve disease. Dilated aortic root and ascending aorta (4.1 cm and 4.2 cm respectively).
Subjective: No CV complaints. Denies palpitations.
Telemetry: Afib with HR 80-100s
Physical Exam
Vital Signs/Labs
Vital Signs
Temp Pulse Resp BP Pulse Ox
98.0 F 88 18 127/82 94
05/06/25 07:59 05/06/25 07:59 05/06/25 07:59 05/06/25 07:59 05/06/25 08:10
05/06/25 07:33
05/06/25 07:33
LAB Results
05/05/25
10:45
Troponin I 0.012
Physical Exam
Constitutional: No acute distress and Comfortable
Cardiovascular: Pedal edema is absent, Rhythm/rate is irregular, S1S2 is normal and Murmur/rub/gallop absent
Respiratory: Respiratory effort normal and Lungs clear to auscul.
Neuro/Psych: AO x 3
Data Reviewed
-
Date of Service: May 06, 2025
Medical Decision Making: Reviewed Test Results, Test Interpretation and Review of Case with other Provider
EKG: Tracing Personally Visualized and interpreted
Echo: Report Reviewed by me
Labs: Labs Reviewed by me
--- NOTE | 2025-05-06 10:36 | W.DCSUMMARY ---
Discharge Summary
Discharge Data
Date of Admission: 05/03/25
Date of Discharge: 05/06/25
-
Pending Results: No
Hospital Course
Mr Christine is a 69 yo male with a h/o cholecystitis previously managed with antibiotics and a cholecystostomy drain who presented for interval definitive operative management with laparoscopic cholecystectomy. Extensive intraabdominal adhesions were
encountered intraoperatively and lysed and a MAJOR drain left in place post operatively. Intraoperative cholangiogram demonstrated a nonobstructive filling defect consistent with choledocholithiasis and gastroenterology was consulted for subsequent
ERCP for removal. During ERCP procedure duodenal ulcers were encountered and PPI was initiated BID. Post ERCP, diet was able to be slowly advanced and well tolerated. Anticoagulation was resumed with stable blood counts and no evidence of bleeding.
He was seen and evaluated by cardiology during his course of stay for atrial fibrillation with rapid ventricular response with the addition of diltiazem PO with good effect. Prior to discharge, he had resolution of abdominal pain and good bowel
recovery and was tolerating a solid diet. The MAJOR drain was removed on date of discharge and outpatient follow up recommended with surgery, cardiology and gastroenterology.
Discharge Plan
-
Patient Disposition: Home (Routine Discharge)
Discharge Diagnosis/Procedures: Choledocholithiasis s/p ERCP with sphincterotomy and stone removal
Cholecystitis s/p cholecystectomy
Duodenal Ulcer
Atrial fibrillation with RVR
Hypertension
Diet: As tolerated and Low Fat
Additional Diets: Switch to a low fat diet if you notice loose stools after surgery
Activity: No strenuous activity
Additional Activity: Do not lift over 20lbs for the next 2-3 weeks
Bathing Restrictions: OK to Shower
Wound Care: Allow the glue to flake off your incisions on its own over the next 2-3 weeks. Cover the site where your drain was with clean gauze and change daily until drainage no longer present. Ok to remove gauze dressing for showers.
Activity Restrictions/Additional Instructions:
Call your surgeon if you have any fevers >100.5, nausea with vomiting or worsening pain.
Monitor your blood pressure and heart rate at home as discussed with your can line examiner.
Referrals:
Giancarlo Cartwright MD [Active, Cardiology] - in three to four weeks
Eliseo Nguyen MD [Active, Surgical] - in two to four weeks
Jonathan Vergara MD [Active, Gastroenterology]
Referral Note: 4-8 weeks for DU
Additional Discharge Medication Instructions: Do not take over the counter NSAIDs (Aleve, Advil, etc) and drinking alcohol as you were diagnosed with a duodenal ulcer.
Prescriptions:
New
pantoprazole 40 mg tablet,delayed release (DR/EC)
40 mg PO BID Qty: 180 0RF
diltiazem HCl 240 mg Capsule,Extended Release 24hr
240 mg PO DAILY Qty: 30 0RF
acetaminophen 325 mg tablet
650 mg PO Q4HPRN PRN (Reason: mild pain) Qty: 1 0RF
polyethylene glycol 3350 17 gram powder in packet
17 g PO DAILY Qty: 14 0RF
Continued
Eliquis 5 mg Tablet
5 mg PO BID
atorvastatin [Lipitor] 20 mg Tablet
20 mg PO QPM
metoprolol tartrate [Lopressor] 100 mg Tablet
100 mg PO BID
lisinopril-hydrochlorothiazide 10-12.5 mg tablet
1 tab PO DAILY
Discontinued
sodium chloride 0.9 % (flush) [Normal Saline Flush] Syringe
10 ml intra-catheter DAILY 42 Days Qty: 450 0RF
Rx Instructions:
flush drain daily
Discharge Orders:
Discharge Patient (As Directed); Ordered 05/06/25
Ordered By: Mary Silva
Discharge Date and Time
Print Language: FRENCH
[2025-05-06] MEDS: MILK OF MAGNESIA 30 ML PO (10:43)
--- NOTE | 2025-05-06 11:20 | CM ---
CM following re: discharge planning.
Reviewed pt's chart, met with pt and pt's daughter at bedside.
Discharge order noted. Both pt and his daughter are aware, expressed their agreement and daughter stated she will transport her father home.
IMM reviewed, placed on chart, pt has a copy.
No after care VN needs identified.
D/C plan: home no needs. Daughter to transport.
[2025-05-06 11:23] VITALS: BP 120/85
== END 2025-05-06 11:47 | disposition home or self-care (01) | DRG 418 ==
LOC: 2 SOUTH 12:03
PROVIDERS: Nurse Practitioner Adult Health; Radiology Diagnostic Radiology; Radiology Vascular & Interventional Radiology; Registered Nurse; ADMITTING PHYSICIAN Surgery; CONSULT PHYSICIAN Internal Medicine Gastroenterology
PROC: BF131ZZ Fluoroscopy of Gallbladder and Bile Ducts using Low Osmolar Contrast (ICD-10-PCS; 2025-04-30)
PROC: 0DNU4ZZ Release Omentum, Percutaneous Endoscopic Approach (ICD-10-PCS; 2025-04-30)
PROC: 0FT44ZZ Resection of Gallbladder, Percutaneous Endoscopic Approach (ICD-10-PCS; 2025-04-30)
PROC: BF101ZZ Fluoroscopy of Bile Ducts using Low Osmolar Contrast (ICD-10-PCS; 2025-05-02)
PROC: 0FC98ZZ Extirpation of Matter from Common Bile Duct, Via Natural or Artificial Opening Endoscopic (ICD-10-PCS; 2025-05-02)
DX: K80.42 Calculus of bile duct with acute cholecystitis without obstruction (principal); I48.19 Other persistent atrial fibrillation; K26.3 Acute duodenal ulcer without hemorrhage or perforation; K66.0 Peritoneal adhesions (postprocedural) (postinfection); D72.829 Elevated white blood cell count, unspecified; I10 Essential (primary) hypertension; E66.9 Obesity, unspecified; F17.200 Nicotine dependence, unspecified, uncomplicated; Z88.0 Allergy status to penicillin; Z90.49 Acquired absence of other specified parts of digestive tract; Z79.01 Long term (current) use of anticoagulants; Z68.32 Body mass index [BMI] 32.0-32.9, adult
CPT/HCPCS: 74019; 74300; 74330; 76000; 80053; 82941; 82962; 83690; 84484; 85027; 88304; 93005; A4300; C1769; J1610

== ENCOUNTER 2025-05-14 09:07 | Inpatient (IN) | payer MEDICARE, OTHER, SELFPAY ==
[2025-05-13] VITALS (11 sets, daily range): BP systolic 98–115; BP diastolic 64–81; BMI 33.0; BMI 32.5
[2025-05-13 14:38] LABS: Hematocrit 43.9 % (39.0-52.0); Hemoglobin 14.3 g/dL (13.0-18.0); Mean Corp Hgb Conc. 32.6 g/dL (33.0-37.0); Mean Corpuscular Volume 95.9 fL (80.0-94.0); Nucleated Red Blood Cells % 0 % (-); Platelet Count 495 10^3/uL (130-400); Red Cell Dist. Width 13.4 % (11.5-14.5)
[2025-05-13 14:47] LABS: ALT (SGPT) 31 U/L (0-50); AST (SGOT) 34 U/L (17-59); Albumin 3.2 g/dl (3.5-5.0); Alkaline Phosphatase 151 U/L (38-126); Blood Urea Nitrogen 17 mg/dl (9-20); Calcium 8.5 mg/dl (8.4-10.2); Carbon Dioxide 27 mmol/L (22-30); Chloride 103 mmol/L (98-107); Glucose 127 mg/dl (70-99); Potassium 4.0 mmol/L (3.5-5.1); Sodium 136 mmol/L (135-145); Total Protein 6.3 g/dl (6.3-8.2); eGFR > 60.00
[2025-05-13 15:06] LABS: Troponin I 0.039 ng/ml
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
--- NOTE | 2025-05-13 16:53 | CON.CAR ---
Addendum entered and electronically signed by Miguel Taylor MD 05/13/25 18:37:
I saw and evaluated the patient, and I provided the substantive portion of the medical decision making.
I reviewed and agree with the note by Madonna SAWANT and it accurately reflects our care.
I personally performed the medical decision making of the this encounter and my assessment and plan is below:
69-year-old gentleman past medical history of persistent atrial fibrillation on Eliquis, hypertension, hypercholesterolemia who underwent lap cholecystectomy with IOC and extensive lysis of adhesions on 04/29/2025 who presents for evaluation of chest
pain. Patient states he has been feeling well postoperatively outside of noticing that his heart rate has been in the 100s and his blood pressure has been in the 140s over 100s since discharge. Today when sitting down he had an episode of sudden
onset mid substernal chest pressure that did not radiate but was associated with diaphoresis. He had intense fatigue feeling as though someone pulled his 'plug'. This has since resolved. He has never felt this way before.
On exam he has a regular rate and rhythm with a normal S1-S2 no murmur rubs gallops were appreciated lungs were clear to auscultation bilaterally abdomen was soft nontender nondistended without any hepatosplenomegaly, extremities were warm and
well-perfused. Some trace non- pitting edema is seen at the ankles.
Labs are pertinent for a white blood cell count of 17.7 which is higher than discharge with a left shift BUN 17 creatinine 1.0 AST 34 ALT 31 alk phos 151 albumin 3.2
EKG tracing shows atrial fibrillation nonspecific ST-T wave abnormality when compared to the prior there is no significant change.
Echocardiogram done 05/13/2025 showing no new regional wall motion abnormality and normal LVEF mild to moderate MR.
Assessment:
Chest pain: Concerning for ACS/unstable angina. Initial troponin 0.039. However echocardiogram does not show new regional wall motion abnormality. Additionally had recent GI surgery and at first thought the feeling was burning. Will need to
monitor. For now would treat as though ACS. IV heparin drip started. Will trend troponin. If no clear etiology is found over the weekend, would plan for cardiac catheterization [place] morning. This could be sooner should symptoms return.
Persistent AF: rate conrolled continue ccb and hep gtt in place of Eliquis
s/p CCY 04/29/25: monitor lft, alk phos up, care permedicine
HTN: reports elevation, monitor and adjust medications
will follow
Original Note:
Consultation
Consultation Request
Date/Time Consultation Requested: 05/13/2025 1645
Date/Time Consultation Performed: 05/13/2025 1700
Requesting Provider: Dr. Lujan
Performing Provider: JESE Herrera for Dr. Taylor
Reason for Consultation: Chest pain, abnormal troponin
Medical History
-
Chief Complaint: Chest pain
History of Present Illness:
Burak Christine is a 69-year-old male (known to Dr. Cartwright, his primary med dir), with persistent atrial fibrillation (on apixaban), hypertension, hypercholesterolemia, dilated ascending aorta, obesity, and laparoscopic cholecystectomy with
IOC and extensive lysis of adhesions on 04/29/2025 presented to the emergency department today with a chief complaint of chest pain. At approximately 11:00 this morning he had an episode of midsternal anterior chest pain. It did not radiate. He
endorsed associated cold sweating. It lasted approximately 2 hours before self resolving. He reports during the event he felt so exhausted he thought he was going to fall asleep. He is not currently having any chest pain.
Past Medical History
Past Medical History: Arrhythmias (Persistent atrial fibrillation), HTN, Hypercholesterolemia and Other (Dilated ascending aorta)
Past Surgical History: Bowel Resection, Cholecystectomy (04/29/2025) and Other (Splenectomy status post trauma, umbilical hernia repair)
Social History
Tobacco: Smoker (For > 50 years.)
Personal:
Living: With Family
Employment: Retired
Family History
Family History: CAD (Father at age 68 due to CVD.) and Cancer (Mother at age 56 due to colon cancer)
Allergies / Home Medications
Allergy/AdvReac Type Severity Reaction Status Date / Time
penicillin G Allergy tolerated Verified 05/13/25 15:57
amoxicillin
&
cefotetan.
�Medication �Instructions �Recorded �Confirmed �Type
apixaban 5 mg tablet (Eliquis) 5 mg PO BID Blood Clot 09/01/23 05/13/25 History
Prevention/Tx
atorvastatin 20 mg tablet (Lipitor) 20 mg PO QPM High Cholesterol 03/01/25 05/13/25 History
metoprolol tartrate 100 mg tablet 100 mg PO BID Blood Pressure 03/01/25 05/13/25 History
(Lopressor)
lisinopril 10 1 tab PO DAILY Blood Pressure 04/27/25 05/13/25 History
mg-hydrochlorothiazide 12.5 mg
tablet
diltiazem HCl 240 mg 240 mg PO DAILY #30 caps 05/06/25 05/13/25 Rx
capsule,extended release 24 hr
pantoprazole 40 mg tablet,delayed 40 mg PO BID #180 tabs 05/06/25 05/13/25 Rx
release
Review of Systems
-
History Source: Patient
All other systems: Negative unless noted
Constitutional: Fatigue
EENT: No Symptoms
Respiratory: No Symptoms
Cardiac: No Symptoms
Abdomen/GI: No Symptoms
: No Symptoms
Musculoskeletal: No Symptoms
Skin: No Symptoms
Neurological: No Symptoms
Endocrine: No Symptoms
Hematologic/Lymphatic: No Symptoms
Physical Exam
Vital Signs
Temp Pulse Resp BP Pulse Ox
97.8 F 85 23 104/75 98
05/13/25 14:06 05/13/25 16:15 05/13/25 16:04 05/13/25 16:04 05/13/25 16:15
Lab Results
05/13/25 14:25
11/21/25 14:25
Troponin I 0.039 ng/ml H* 05/13/25 14:25
Physical Exam
General: Well Developed, Well Nourished, No Apparent Distress and Comfortable
HEENT: Normocephalic, Anicteric and Moist Mucous Membranes
Respiratory: Clear and Non Labored Respirations
Cardiac: S1/S2, Irregular Rhythm and Peripheral Edema (+1 bilateral lower extremity edema)
Breast: Deferred by me
GI: Soft, Non Distended and Normal Bowel Sounds
Rectal: Deferred by Provider
Genito-urinary: No Costovertebral Tender
Musculoskeletal: No Clubbing and No Cyanosis
Skin: Warm and Dry
Neuro: AO x 3
Hematologic/Lymphatic: No Lymphadenopathy
Psych: Calm
Impression / Plan
-
I/P: 69M with persistent atrial fibrillation (on apixaban), hypertension, hypercholesterolemia, dilated ascending aorta, obesity, and laparoscopic cholecystectomy with IOC and extensive lysis of adhesions on 04/29/2025 presented with CP.
Primary med dir: Dr. Cartwright
Chest pain
- Concerning for cardiac etiology, hold apixaban and start ASA/heparin drip
- 2 hours of chest pain with associated shortness of breath and significant fatigue
- Initial troponin 0.039, trend with EKG
- EKG with rate controlled atrial fibrillation
- Echocardiogram
Persistent atrial fibrillation
- Rate controlled on diltiazem 240 mg (added last admission) and metoprolol tartrate 100 mg twice daily, continue
- Previously paroxysmal, likely has been atrial fibrillation since OV 03/29/2025
- Oral anticoagulation: Apixaban 5 mg twice daily
Cholecystitis/choledocholithiasis s/p laparoscopic cholecystectomy and extensive lysis of adhesions 04/29/[address] Nguyen & ERCP 05/02/2025
- Denies abdominal pain
Leukocytosis, afebrile, per primary service
Hypertension, chronic and stable
Dilated ascending aorta, continue beta-sally
Tobacco use, cessation recommended
SUBJECTIVE:
As above. See HPI currently chest pain-free.
DATA:
Transthoracic echocardiogram, 04/15/2025:
SUMMARY
1. Normal biventricular size and systolic function without regional wall motion abnormality.
2. No significant valve disease.
3. Dilated aortic root and ascending aorta (4.1 cm and 4.2 cm respectively).
4. Compared to the prior on 09/03/2023, mild to moderate mitral digitation is no longer seen.
Data Reviewed
-
EKG: Report Reviewed by me
Medical Tests (Nuc Med, Echo etc): Report Reviewed by me
Labs: Labs Reviewed by me
Old Records: Reviewed
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
[2025-05-13] MEDS: LOW STRENGTH ASPIRIN 324 MG PO (18:12)
[2025-05-13 18:20] LABS: APTT 36.7 Sec (23.4-35.0)
[2025-05-13] MEDS: HEPARIN 4000 UNITS IV (18:23)
[2025-05-13] MEDS: HEPARIN 25000 UNITS/250 ML IV (18:24)
[2025-05-13 21:00] LABS: Troponin I 6.930 ng/ml
[2025-05-13] MEDS: PROTONIX 40 MG PO (21:12)
[2025-05-13] MEDS: LOPRESSOR 100 MG PO (21:13)
[2025-05-13] MEDS: LIPITOR 20 MG PO (21:56)
[2025-05-14] VITALS (7 sets, daily range): BP systolic 105–128; BP diastolic 70–93; BMI 32.3
[2025-05-14 00:52] LABS: APTT 61.3 Sec (23.4-35.0)
[2025-05-14 01:15] LABS: Troponin I 9.460 ng/ml
--- NOTE | 2025-05-14 01:18 | PTCARENOTE ---
Pt admitted to room 2253 for CP. Pt AAO x 4. Denies CP or any other discomfort. Heparin gtt per order. Pt oriented to the room. Ambulates independently. Call crocker within reach
[2025-05-14 04:09] LABS: Hematocrit 38.5 % (39.0-52.0); Hemoglobin 13.1 g/dL (13.0-18.0); Mean Corp Hgb Conc. 34.0 g/dL (33.0-37.0); Mean Corpuscular Volume 92.8 fL (80.0-94.0); Platelet Count 407 10^3/uL (130-400); Red Cell Dist. Width 13.3 % (11.5-14.5)
[2025-05-14 04:40] LABS: Troponin I 9.200 ng/ml
[2025-05-14 04:48] LABS: ALT (SGPT) 31 U/L (0-50); AST (SGOT) 73 U/L (17-59); Albumin 2.6 g/dl (3.5-5.0); Alkaline Phosphatase 116 U/L (38-126); Blood Urea Nitrogen 23 mg/dl (9-20); Calcium 8.1 mg/dl (8.4-10.2); Carbon Dioxide 28 mmol/L (22-30); Chloride 107 mmol/L (98-107); Estimated Creatinine Clearance 97 ml/min; Glucose 99 mg/dl (70-99); HDL Cholesterol 24 mg/dl; LDL Cholesterol, Calculated 45 mg/dl; Potassium 3.8 mmol/L (3.5-5.1); Sodium 138 mmol/L (135-145); Total Protein 5.3 g/dl (6.3-8.2); Very Low Density Lipoprotein 13 mg/dl (0-30); eGFR > 60.00
[2025-05-14 08:52] LABS: Glycohemoglobin (HgbA1c) 5.8 % (4.0-5.9)
--- NOTE | 2025-05-14 09:11 | W.PN.CD ---
Today's Communication / Plan
-
Continue heparin drip
Intensify statin
Continue to monitor for chest pain
N.p.o. after midnight Friday night for catheterization in the morning, he has been added to the schedule. He is agreeable.
Impression / Plan
-
I/P: 69M with persistent atrial fibrillation (on apixaban), hypertension, hypercholesterolemia, dilated ascending aorta, obesity, and laparoscopic cholecystectomy with IOC and extensive lysis of adhesions on 04/29/2025 presented with CP.
Primary creative services coordinator: Dr. Cartwright
NSTEMI
-This is a risk to life
-asa, heparin ggt, statin(will intensify), BB, ACEI
-cp free
-Trop pk 9.42
-npo p mn on Sun for Cath Friday
Persistent atrial fibrillation
- Rate controlled on diltiazem 240 mg (added last admission) and metoprolol tartrate 100 mg twice daily, continue
- Previously paroxysmal, likely has been atrial fibrillation since OV 03/29/2025
- Typical oral anticoagulation: Apixaban 5 mg twice daily
Cholecystitis/choledocholithiasis s/p laparoscopic cholecystectomy and extensive lysis of adhesions 04/29/[address] Nguyen & ERCP 05/02/2025
- Denies abdominal pain
Hypertension, chronic and stable
Dilated ascending aorta, continue beta-sally
Tobacco use, cessation recommended
SUBJECTIVE:
no further chest pain
DATA:
TTE 04/23/25:
SUMMARY
1. Limited study to evaluate LVEF.
2. Normal biventricular size and systolic function without regional wall motion abnormalities. EF 55%.
3. Mild to moderate mitral regurgitation.
4. Aortic valve is thickened but not fully evaluated with Doppler flow to assess for stenosis. It does appear to open well.
5. Compared to the prior on 04/11/2025, mild to moderate mitral regurgitation is seen.
Transthoracic echocardiogram, 04/15/2025:
SUMMARY
1. Normal biventricular size and systolic function without regional wall motion abnormality.
2. No significant valve disease.
3. Dilated aortic root and ascending aorta (4.1 cm and 4.2 cm respectively).
4. Compared to the prior on 09/03/2023, mild to moderate mitral digitation is no longer seen.
Physical Exam
Vital Signs/Labs
Vital Signs
Temp Pulse Resp BP Pulse Ox
97.6 F 97 18 109/84 99
05/14/25 08:00 05/14/25 08:00 05/14/25 08:00 05/14/25 03:48 05/14/25 08:00
05/13/25 05/14/25 05/15/25
06:59 06:59 06:59
Actual Weight 237 lb 14.06 oz
05/14/25 03:49
05/14/25 03:49
APTT 61.3 Sec (23.4-35.0) H 05/14/25 00:23
Triglycerides 66 mg/dl (10-149) 05/14/25 03:49
LDL Cholesterol, Calc 45 mg/dl 05/14/25 03:49
VLDL Cholesterol, Calc 13 mg/dl (0-30) 05/14/25 03:49
HDL Cholesterol 24 mg/dl 05/14/25 03:49
LAB Results
05/13/25 05/13/25 05/13/25
14:25 20:27 22:14
Troponin I 0.039 H* 6.930 H* D Cancelled
05/14/25 05/14/25
00:23 03:49
Troponin I 9.460 H* D 9.200 H*
Physical Exam
Constitutional: No acute distress
Cardiovascular: Pedal edema is absent, JVD pressure is normal, Systolic murmur absent and Rhythm/rate is irregular
Respiratory: Respiratory effort normal, Lungs clear to auscul., Wheeze Absent, Crackles Absent and Rhonchi Absent
Neuro/Psych: AO x 3
Data Reviewed
-
Date of Service: May 14, 2025
Medical Decision Making: Review of Case with other Provider (Dr. Perez, will get cath Friday)
[2025-05-14] MEDS: ZESTRIL 10 MG PO (09:20)
[2025-05-14] MEDS: PROTONIX 40 MG PO ×2 (09:20→20:00)
[2025-05-14] MEDS: ORETIC 12.5 MG PO (09:20)
[2025-05-14] MEDS: LOPRESSOR 100 MG PO ×2 (09:21→20:00)
[2025-05-14] MEDS: CARDIZEM CD 240 MG PO (09:22)
[2025-05-14] MEDS: LOW STRENGTH ASPIRIN 81 MG PO (09:22)
[2025-05-14 10:21] LABS: APTT 58.0 Sec (23.4-35.0)
--- NOTE | 2025-05-14 13:01 | W.PN.HOSP.TC ---
Today's Communication/Plan
-
Trend Troponins to peak
[facility] wednesday 05/16
Hep ggt, ASA, statin
Assessment / Plan
Assessment / Plan
Physical Exam
General: Well Developed, Well Nourished, No Apparent Distress, Comfortable, Conversant and Obese
HEENT: NormoCephalic, Moist mucous membranes, PERRLA, Ears Appear Normal and Hearing Impaired
Respiratory: Clear and Non Labored Respirations; No Wheezes, Rales or Rhonchi
Cardiac: S1/S2, Irregular Rhythm and Peripheral Edema (+1 - +2 bilateral lower extremity edema ); No Murmur or Rub
GI: Soft, Non Tender, Non Distended and Normal Bowel Sounds
Musculoskeletal: No Clubbing and No Cyanosis
Skin: Warm and IV/Catheter Site
Neuro: Awake and AO x 3
Psych: Calm and Intact Judgment/Insight
#Chest Pain
#NSTEMI
�Echo�EF 55%, mild to moderate mitral regurgitation, no obvious regional wall motion abnormality
� Troponin 9.2, trend to peak
- trend troponin with EKG
- heparin gtt
- aspirin
- Left heart cath Friday
#Leukocytosis
� Suspect reactive
� Continue monitor fever curve, white count
#Paroxysmal atrial fibrillation
last dose of Eliquis 05/13/2025 AM
- continue diltiazem and metoprolol
- hold Eliquis while on heparin gtt
#Hypertension
- continue lisinopril-HCTZ
#Hyperlipidemia
- continue atorvastatin
#GERD
- continue pantoprazole
#obesity
- encourage balanced diet and exercise to promote weight loss
#nicotine dependency
daily smoker
- encouraed cessation
Code status: Full code
DVT prophylaxis: heparin gtt
Anticipated Discharge: > 48 hours
Subjective/Interval History
-
Date of Service: May 14, 2025
no acute events overnight, chest pain resolved
Objective Data
-
Labs:
Laboratory Results
05/14/25 05/14/25 05/14/25
03:49 10:03 16:30
WBC 16.1 H
Hgb 13.1
Hct 38.5 L
Plt Count 407 H
APTT 58.0 H Pending
Sodium 138
Potassium 3.8
Chloride 107
Carbon Dioxide 28
BUN 23 H
Creatinine 0.9
Glucose 99
Calcium 8.1 L
Total Bilirubin 0.9
AST 73 H
ALT 31
Alkaline Phosphatase 116
Vital Signs:
Vital Signs
Temp Pulse Resp BP Pulse Ox
97.5 F 86 18 106/70 100
05/14/25 12:48 05/14/25 12:48 05/14/25 12:48 05/14/25 07:59 05/14/25 12:48
I&O
05/13/25 05/14/25 05/15/25
06:59 06:59 06:59
Output Total 500 / 500
Balance -500 / -500
Review of Systems
-
History Source: Patient
All other systems: Not reviewed unless documented
Data Reviewed
-
Medical Tests (Nuc Med, Echo etc): Report Reviewed by me
Labs: Labs Reviewed by me
[2025-05-14] MEDS: HEPARIN 25000 UNITS/250 ML IV (15:40)
[2025-05-14 16:36] LABS: APTT 63.3 Sec (23.4-35.0)
[2025-05-14 17:05] LABS: Troponin I 4.600 ng/ml
[2025-05-14] MEDS: LIPITOR 40 MG PO (18:01)
[2025-05-14 23:18] LABS: APTT 100.2 Sec (23.4-35.0)
[2025-05-14 23:40] LABS: Troponin I 3.940 ng/ml
[2025-05-15] VITALS (7 sets, daily range): BP systolic 95–118; BP diastolic 57–84; BMI 32.3
--- NOTE | 2025-05-15 05:20 | PTCARENOTE ---
Patient received on Heparin drip at 1600units/hr. 23:00 PTT 100.2. Rate unchanged. Awaiting repeat level results this am. Troponin continues to trend down at 3.94. Patient denies CP, SOB. VSS.
[2025-05-15 05:38] LABS: Hematocrit 39.7 % (39.0-52.0); Hemoglobin 13.6 g/dL (13.0-18.0); Mean Corp Hgb Conc. 34.3 g/dL (33.0-37.0); Mean Corpuscular Volume 93.0 fL (80.0-94.0); Platelet Count 409 10^3/uL (130-400); Red Cell Dist. Width 13.3 % (11.5-14.5)
[2025-05-15 05:51] LABS: ALT (SGPT) 27 U/L (0-50); AST (SGOT) 45 U/L (17-59); Albumin 2.7 g/dl (3.5-5.0); Alkaline Phosphatase 130 U/L (38-126); Blood Urea Nitrogen 19 mg/dl (9-20); Calcium 8.5 mg/dl (8.4-10.2); Carbon Dioxide 27 mmol/L (22-30); Chloride 104 mmol/L (98-107); Estimated Creatinine Clearance 97 ml/min; Glucose 121 mg/dl (70-99); Potassium 3.9 mmol/L (3.5-5.1); Sodium 134 mmol/L (135-145); Total Protein 5.7 g/dl (6.3-8.2); eGFR > 60.00
[2025-05-15 05:53] LABS: APTT 76.2 Sec (23.4-35.0)
[2025-05-15 06:07] LABS: Troponin I 3.780 ng/ml
[2025-05-15] MEDS: HEPARIN 25000 UNITS/250 ML IV ×2 (07:09→22:15)
--- NOTE | 2025-05-15 07:52 | W.PN.CD ---
Today's Communication / Plan
-
Heparin drip renewed, continue intensive monitoring.
N.p.o. after midnight for cardiac catheterization in AM.
Impression / Plan
-
I/P: 69M with persistent atrial fibrillation (on apixaban), hypertension, hypercholesterolemia, dilated ascending aorta, obesity, and laparoscopic cholecystectomy with IOC and extensive lysis of adhesions on 04/29/2025 presented with CP.
Primary tobacco stemmer machine: Dr. Cartwright
NSTEMI
-This is a risk to life
-asa, heparin gtt, statin(will intensify), BB, ACEI
-cp free
-Trop pk 9.42
-npo p mn on Sun for Cath Friday
Persistent atrial fibrillation
- Rate controlled on diltiazem 240 mg (added last admission) and metoprolol tartrate 100 mg twice daily, continue
- Previously paroxysmal, likely has been atrial fibrillation since OV 03/29/2025
- Typical oral anticoagulation: Apixaban 5 mg twice daily
Cholecystitis/choledocholithiasis s/p laparoscopic cholecystectomy and extensive lysis of adhesions 04/29/[address] Nguyen & ERCP 05/02/2025
- Denies abdominal pain
Hypertension, chronic and stable
Dilated ascending aorta, continue beta-sally
Tobacco use, cessation recommended
SUBJECTIVE:
no complaints
DATA:
TTE 04/23/25:
SUMMARY
1. Limited study to evaluate LVEF.
2. Normal biventricular size and systolic function without regional wall motion abnormalities. EF 55%.
3. Mild to moderate mitral regurgitation.
4. Aortic valve is thickened but not fully evaluated with Doppler flow to assess for stenosis. It does appear to open well.
5. Compared to the prior on 04/11/2025, mild to moderate mitral regurgitation is seen.
Transthoracic echocardiogram, 04/15/2025:
SUMMARY
1. Normal biventricular size and systolic function without regional wall motion abnormality.
2. No significant valve disease.
3. Dilated aortic root and ascending aorta (4.1 cm and 4.2 cm respectively).
4. Compared to the prior on 09/03/2023, mild to moderate mitral digitation is no longer seen.
Physical Exam
Vital Signs/Labs
Vital Signs
Temp Pulse Resp BP Pulse Ox
98.2 F 90 20 115/82 94
05/15/25 07:44 05/15/25 07:00 05/15/25 07:44 05/15/25 03:18 05/15/25 07:44
05/14/25 05/15/25 05/16/25
06:59 06:59 06:59
Actual Weight 237 lb 14.06 oz 237 lb 14.06 oz
05/15/25 05:11
05/15/25 05:11
APTT 76.2 Sec (23.4-35.0) H 05/15/25 05:11
Triglycerides 66 mg/dl (10-149) 05/14/25 03:49
LDL Cholesterol, Calc 45 mg/dl 05/14/25 03:49
VLDL Cholesterol, Calc 13 mg/dl (0-30) 05/14/25 03:49
HDL Cholesterol 24 mg/dl 05/14/25 03:49
LAB Results
05/13/25 05/13/25 05/13/25
14:25 20:27 22:14
Troponin I 0.039 H* 6.930 H* D Cancelled
05/14/25 05/14/25 05/14/25
00:23 03:49 16:15
Troponin I 9.460 H* D 9.200 H* 4.600 H*
05/14/25 05/15/25
22:54 05:11
Troponin I 3.940 H* 3.780 H*
Physical Exam
Constitutional: No acute distress
Cardiovascular: Rhythm & rate is regular, Pedal edema is absent, JVD pressure is normal, Systolic murmur absent and Diastolic murmur absent
Respiratory: Respiratory effort normal, Lungs clear to auscul., Wheeze Absent, Crackles Absent and Rhonchi Absent
Neuro/Psych: AO x 3
Data Reviewed
-
Date of Service: May 15, 2025
EKG: Other (A-fib with PVCs On telemetry)
[2025-05-15] MEDS: LOPRESSOR 100 MG PO ×2 (08:31→20:06)
[2025-05-15] MEDS: LOW STRENGTH ASPIRIN 81 MG PO (08:31)
[2025-05-15] MEDS: CARDIZEM CD 240 MG PO (08:31)
[2025-05-15] MEDS: ZESTRIL 10 MG PO (08:32)
[2025-05-15] MEDS: PROTONIX 40 MG PO ×2 (08:32→20:06)
--- NOTE | 2025-05-15 11:25 | PTCARENOTE ---
Pt offers no complaints, denies chest pain, ambulating in room.
--- NOTE | 2025-05-15 13:48 | W.PN.HOSP.TC ---
Today's Communication/Plan
-
hep ggt
asa
stop hctz, monitor na
LHC tomorrow
Assessment / Plan
Assessment / Plan
Physical Exam
General: Well Developed, Well Nourished, No Apparent Distress, Comfortable, Conversant and Obese
HEENT: NormoCephalic, Moist mucous membranes, PERRLA, Ears Appear Normal and Hearing Impaired
Respiratory: Clear and Non Labored Respirations; No Wheezes, Rales or Rhonchi
Cardiac: S1/S2, Irregular Rhythm and Peripheral Edema (+1 - +2 bilateral lower extremity edema ); No Murmur or Rub
GI: Soft, Non Tender, Non Distended and Normal Bowel Sounds
Musculoskeletal: No Clubbing and No Cyanosis
Skin: Warm and IV/Catheter Site
Neuro: Awake and AO x 3
Psych: Calm and Intact Judgment/Insight
#Chest Pain
#NSTEMI
�Echo�EF 55%, mild to moderate mitral regurgitation, no obvious regional wall motion abnormality
� Troponin 9.2, trend to peak, 9.46
- trend troponin with EKG
- heparin gtt
- aspirin
- Left heart cath Friday
#Leukocytosis
� Suspect reactive
� Continue monitor fever curve, white count
#Paroxysmal atrial fibrillation
last dose of Eliquis 05/13/2025 AM
- continue diltiazem and metoprolol
- hold Eliquis while on heparin gtt
#Hyponatremia
� Mild
� hydrochlorothiazide discontinued
#Hypertension
- continue lisinopril
#Hyperlipidemia
- continue atorvastatin
#GERD
- continue pantoprazole
#obesity
- encourage balanced diet and exercise to promote weight loss
#nicotine dependency
daily smoker
- encouraged cessation
Code status: Full code
DVT prophylaxis: heparin gtt
Anticipated Discharge: 24 - 48 hours
Subjective/Interval History
-
Date of Service: May 15, 2025
No acute events overnight
Objective Data
-
Labs:
Laboratory Results
05/15/25
05:11
WBC 15.5 H
Hgb 13.6
Hct 39.7
Plt Count 409 H
APTT 76.2 H
Sodium 134 L
Potassium 3.9
Chloride 104
Carbon Dioxide 27
BUN 19
Creatinine 0.9
Glucose 121 H
Calcium 8.5
Total Bilirubin 1.0
AST 45
ALT 27
Alkaline Phosphatase 130 H
Vital Signs:
Vital Signs
Temp Pulse Resp BP Pulse Ox
98 F 84 20 107/73 96
05/15/25 11:52 05/15/25 10:30 05/15/25 11:52 05/15/25 07:44 05/15/25 11:52
I&O
05/14/25 05/15/25 05/16/25
06:59 06:59 06:59
Intake Total 1152 / 1152
Output Total 500 / 500
Balance -500 / -500 1152 / 1152
Review of Systems
-
History Source: Patient
All other systems: Not reviewed unless documented
Data Reviewed
-
Medical Tests (Nuc Med, Echo etc): Report Reviewed by me
Labs: Labs Reviewed by me
[2025-05-15] MEDS: LIPITOR 40 MG PO (17:08)
--- NOTE | 2025-05-15 22:31 | PTCARENOTE ---
Received pt @ change of shift. AAOx3, VSS-- Afib on monitor. Denies CP at this time. 5 lap cholecystectomy incisions intact-- glue, scabs visible, little ecchymotic. Heparin gtt running through left forearm @ 16 mL/hr. Discussed being NPO @ midnight
for cath in AM-- pt verbalizes understanding. Plan of care ongoing. Call crocker within reach.
[2025-05-16] VITALS (14 sets, daily range): BP systolic 106–126; BP diastolic 70–92; BMI 32.0
[2025-05-16 04:42] LABS: Hematocrit 39.4 % (39.0-52.0); Hemoglobin 13.6 g/dL (13.0-18.0); Mean Corp Hgb Conc. 34.5 g/dL (33.0-37.0); Mean Corpuscular Volume 95.2 fL (80.0-94.0); Platelet Count 384 10^3/uL (130-400); Red Cell Dist. Width 13.2 % (11.5-14.5)
[2025-05-16 04:55] LABS: APTT 88.7 Sec (23.4-35.0)
[2025-05-16 05:04] LABS: ALT (SGPT) 29 U/L (0-50); AST (SGOT) 43 U/L (17-59); Albumin 2.8 g/dl (3.5-5.0); Alkaline Phosphatase 125 U/L (38-126); Blood Urea Nitrogen 17 mg/dl (9-20); Calcium 8.2 mg/dl (8.4-10.2); Carbon Dioxide 29 mmol/L (22-30); Chloride 105 mmol/L (98-107); Estimated Creatinine Clearance 96 ml/min; Glucose 102 mg/dl (70-99); Potassium 3.9 mmol/L (3.5-5.1); Sodium 137 mmol/L (135-145); Total Protein 5.6 g/dl (6.3-8.2); eGFR > 60.00
[2025-05-16] MEDS: PROTONIX 40 MG PO ×2 (07:42→20:36)
[2025-05-16] MEDS: LOPRESSOR 100 MG PO ×2 (07:42→20:36)
[2025-05-16] MEDS: LOW STRENGTH ASPIRIN 81 MG PO (07:43)
[2025-05-16] MEDS: ZESTRIL 10 MG PO (07:43)
[2025-05-16] MEDS: CARDIZEM CD 240 MG PO (07:43)
--- NOTE | 2025-05-16 09:05 | W.PN.HOSP.TC ---
Today's Communication/Plan
-
chest XR
UA
cardiac cath
Assessment / Plan
Assessment / Plan
69yo M with PMHx of Afib on Eliquis, HTN, HLD, GERD, cholecystectomy 2 weeks ago with intraOP choledocholithiasis removed with ERCP came with sudden onset of chest pain and elevated troponin, consistent with NSTEMI
A/P:
#NSTEMI
ASA, statin, BB
Heparin drip
Serial troponin peakied at 9.46, EKG without overt ST elvations, however TWI in inferior leads
Echo: EF 55%, mild-moderate MR, AV thickening
Cardiology consult: for cardiac cath on 05/16/25
LDL 45
HgbA1c 5.8%
#Persistent Afib
restart Eliquis after completion of heparin drip
telemetry
Rate/rhythm control as per card
#Leukocytosis
no respiratory, urinary or GI symptoms
Abd non-tender and postOP site healing well without redness or pain, LFT WNL
CHest XR and UA reasonable
COVID-19 and Influenza PCR neg
#Nicotine depndency
Counselled on cessation
Nicoderm
#HLD
#Essential HTN
#PUD
cont home meds, HCTZ stopped 2/2 hyponatremia on admission
DVT ppx on hep drip
Full code
I have spent at least 51min reviewing chart, test rtesults, communication with consultants and providing direct patient care
Anticipated Discharge: Within 24 hours
Subjective/Interval History
-
Date of Service: May 16, 2025
Objective Data
-
Labs:
Laboratory Results
05/16/25
04:16
WBC 14.9 H
Hgb 13.6
Hct 39.4
Plt Count 384
APTT 88.7 H
Sodium 137
Potassium 3.9
Chloride 105
Carbon Dioxide 29
BUN 17
Creatinine 0.9
Glucose 102 H
Calcium 8.2 L
Total Bilirubin 1.1
AST 43
ALT 29
Alkaline Phosphatase 125
Vital Signs:
Vital Signs
Temp Pulse Resp BP Pulse Ox
98.3 F 81 18 106/82 96
05/16/25 07:38 05/16/25 09:00 05/16/25 07:38 05/16/25 07:43 05/16/25 08:00
I&O
05/15/25 05/16/25 05/17/25
06:59 06:59 06:59
Intake Total 1152 / 1152
Balance 1152 / 1152
Review of Systems
-
History Source: Patient
All other systems: Reviewed and negative
Physical Exam
-
General: No Apparent Distress
HEENT: Normocephalic
Respiratory: Clear to Auscultation
GI: Soft, Nontender and Nondistended
Skin: Warm
Neuro: Awake, Alert, Oriented and AO x 3
Psych: Calm
[2025-05-16 09:16] LABS: Urine Character Clear (Clear)
--- NOTE | 2025-05-16 09:18 | PTCARENOTE ---
Patient received at change of shift sitting at the edge of the bed. Denies chest pain at this time. Heparin gtt infusing at 1600units/hr. U/A ordered by hospitalist and sent. Afib on the monitor. SaO2 on RA 96%. Discussed NPO status in anticipation
of cardiac cath today. Call crocker within reach. Spouse at bedside. Plan of care discussed. Care ongoing.
[2025-05-16 09:50] LABS: Urine Squamous Cell 0-2 /LPF (Few)
[2025-05-16 09:51] LABS: Urine Red Blood Cell 0-2 /HPF (0-2); Urine White Cell 0-2 /HPF (0-5)
--- NOTE | 2025-05-16 11:18 | PTCARENOTE ---
Report given to FRANK Ma, patient to finishing lab technician at approx [phone]
--- NOTE | 2025-05-16 11:22 | W.PN.CD ---
Today's Communication / Plan
-
Cardiac catheterization today to clarify coronary anatomy.
Impression / Plan
-
Impression/Plan: 69M with persistent atrial fibrillation (on apixaban), hypertension, hypercholesterolemia, dilated ascending aorta, obesity, and laparoscopic cholecystectomy with IOC and extensive lysis of adhesions on 04/29/2025 presented with
NSTEMI.
Primary mission planner: Dr. Cartwright
#NSTEMI
-Acute, risk to life.
-Troponin peaked at 9.42.
-EKG shows rate controlled AF, inferior infarct, age undetermined.
-Continue asa, heparin gtt, statin, BB, ACEI.
-Cardiac catheterization to clarify coronary anatomy.
#Persistent atrial fibrillation
-Currently in AF.
-Rate controlled on diltiazem 240 mg (added last admission) and metoprolol tartrate 100 mg twice daily.
-Previously paroxysmal, likely has been atrial fibrillation since OV 03/29/2025.
-CHADS2-Vasc = 2-3 (HTN, Age x1, vascular disease?).
-Therapeutic anticoagulation with apixaban on hold pending cath. Continue heparin gtt.
#Cholecystitis/choledocholithiasis
-Acute.
-s/p laparoscopic cholecystectomy and extensive lysis of adhesions 04/29/[address] Nguyen & ERCP 05/02/2025.
-Denies abdominal pain.
#Hypertension
-Chronic and stable.
#Dilated ascending aorta
-Chronic, stable (4.1-4.2 cm).
-Continue metoprolol.
#Tobacco use
-Chronic, ongoing.
-Cessation recommended.
Subjective/Interval History:
No acute events.
No subjective complaints.
DATA:
TTE 04/23/25:
SUMMARY
1. Limited study to evaluate LVEF.
2. Normal biventricular size and systolic function without regional wall motion abnormalities. EF 55%.
3. Mild to moderate mitral regurgitation.
4. Aortic valve is thickened but not fully evaluated with Doppler flow to assess for stenosis. It does appear to open well.
5. Compared to the prior on 04/11/2025, mild to moderate mitral regurgitation is seen.
Transthoracic echocardiogram, 04/15/2025:
SUMMARY
1. Normal biventricular size and systolic function without regional wall motion abnormality.
2. No significant valve disease.
3. Dilated aortic root and ascending aorta (4.1 cm and 4.2 cm respectively).
4. Compared to the prior on 09/03/2023, mild to moderate mitral digitation is no longer seen.
Physical Exam
Vital Signs/Labs
Vital Signs
Temp Pulse Resp BP Pulse Ox
36.7 C 81 20 113/70 96
05/16/25 11:10 05/16/25 11:10 05/16/25 11:10 05/16/25 11:10 05/16/25 11:10
05/14/25 05/15/25 05/16/25
11:59 11:59 11:59
Actual Weight 107.9 kg 107.9 kg 106.9 kg
05/16/25 04:16
05/16/25 04:16
APTT 88.7 Sec (23.4-35.0) H 05/16/25 04:16
Triglycerides 66 mg/dl (10-149) 05/14/25 03:49
LDL Cholesterol, Calc 45 mg/dl 05/14/25 03:49
VLDL Cholesterol, Calc 13 mg/dl (0-30) 05/14/25 03:49
HDL Cholesterol 24 mg/dl 05/14/25 03:49
LAB Results
05/13/25 05/13/25 05/13/25
14:25 20:27 22:14
Troponin I 0.039 H* 6.930 H* D Cancelled
05/14/25 05/14/25 05/14/25
00:23 03:49 16:15
Troponin I 9.460 H* D 9.200 H* 4.600 H*
05/14/25 05/15/25 05/15/25
22:54 05:11 07:30
Troponin I 3.940 H* 3.780 H* Cancelled
Physical Exam
Constitutional: No acute distress and Comfortable
EENT: Anicteric and Moist mucous membranes
Cardiovascular: Pedal edema is absent, JVD pressure is normal, Pedal edema present, S1S2 is normal and Murmur/rub/gallop absent
Respiratory: Respiratory effort normal, Lungs clear to auscul., Wheeze Absent, Crackles Absent and Rhonchi Absent
GI: Soft, Distention absent, Flat, Non tender and Normal bowel sounds
Neuro/Psych: AO x 3
Data Reviewed
-
Date of Service: May 16, 2025
Medical Decision Making: Reviewed Test Results, Independent Historian Assessment and Test Interpretation
EKG: Tracing Personally Visualized and interpreted and Report Reviewed by me
X-Ray/CT/US/MRI/NUC/PET: Image Personally Visualized and interpreted and Report Reviewed by me
Labs: Labs Reviewed by me
Old Records: Reviewed
[2025-05-16 12:33] LABS: ACT-LR - POC 256 Seconds (116-155)
[2025-05-16 13:11] LABS: ACT-LR - POC > 397 Seconds (116-155)
[2025-05-16 13:13] LABS: ACT-LR - POC 276 Seconds (116-155)
[2025-05-16 13:28] LABS: ACT-LR - POC 324 Seconds (116-155)
[2025-05-16 14:08] LABS: ACT-LR - POC > 397 Seconds (116-155)
[2025-05-16] MEDS: NSS 1000 IV (14:36)
--- NOTE | 2025-05-16 14:45 | PTCARENOTE ---
Patient received from the microbiological lab technician at approximately 1430. Right radial TR band intact, pox 96%, radial pulse weak but palpable. Right groin site C/D/I, surrounding area soft to palpation, pedal pulse +2 to palpation. Post PCI ECG completed. Post PCI
IVF infusing as ordered. Afib on telemetry. Patient on room air, oxygen saturation 96-97%. Denies pain. Discussed bedrest, HOB restriction, and activity restrictions, the patient verbalized understanding. Call crocker within reach. Care ongoing.
--- NOTE | 2025-05-16 16:30 | CM ---
priced brilinta at [facility]- his copay is zero dollars - he has met his 2000 OOP this year. his plan also requires brand name only for brilinta and i gave him the good rx coupon for ticagrelor at [facility] for $32/month in case next year he has
a high deductible.
--- NOTE | 2025-05-16 16:40 | ITS.CL.ANGIO ---
Physician Intensivist - Angioplasty
Angioplasty
Procedure Report:
CARDIAC CATHETERIZATION REPORT
Date of Procedure: 05/16/2025
Referring: Melany Taylor M.D.
INDICATION: Non-ST elevation myocardial infarction.
PROCEDURE:
1. Left heart catheterization
2. Coronary angiography.
3. Successful, complex PCI of the massive proximal right coronary artery.
A total of 135 minutes of procedural/moderate sedation was utilized. An independent medical supply technician was present to assist with and help manage the patient's level of consciousness and physiologic status.
ACCESS:
1. 7 Finnish right radial artery using a modified Seldinger technique.
2. 8 Finnish right common femoral artery using a modified Seldinger technique with a micropuncture kit under ultrasound guidance.
CATHETERS:
1. 5 Finnish JR4.
2. 5 Finnish JL 3.5.
3. 7 Finnish JR4 guiding catheter.
4. 8 Finnish JR4 guiding catheter.
HEMODYNAMIC DATA
Weight (kg): 106.6
AO (s/d/x, mmHg): 102/71/83
LV (s/x mmHg): 105/22
AV gradient (x, mmHg): None.
LEFT VENTRICULOGRAPHY: Not performed.
CORONARY ANGIOGRAPHY
Dominance: Right.
Left Main: Long, trifurcating vessel. There is no coronary artery disease.
LAD: Normal size vessel giving rise to 1 significant diagonal. There is no coronary artery disease. There is a myocardial bridge in the mid vessel.
Ramus: Small size vessel supplying the base of the anterolateral wall. There is no coronary artery disease.
Circumflex: Normal size, nondominant vessel that is essentially a single obtuse marginal supplying the mid lateral wall. There is no coronary artery disease.
RCA: Massive, dominant vessel with a large posterolateral arcade that supplies the inferior and inferolateral wall. There is a 95% lesion in the proximal margin of the vessel with NELLIE II flow.
INTERVENTION(S)
1. Status post successful complex PCI of the 95% proximal RCA lesion ([place] Viabahn 6.0 x 19 covered stent, postdilated with a 7.0 x 20 noncompliant balloon) with reduction in stenosis to 0%, restoring NELLIE-3 flow.
Narrative:
The decision was made to proceed with percutaneous coronary intervention after discussing the case with interventional cardiology colleagues as well as alerting the CT surgical staff for surgical backup. The diagnostic catheter was removed over a
wire and a the 6 Finnish radial sheath was exchanged for a 7 Finnish radial sheath. A 7Fr JR4 guiding catheter was advanced to the aortic root and seated in the right coronary artery. Additional heparin was given and a Power Turn Flex wire was
advanced into the right coronary artery, but would not advance beyond the lesion due to the angulation of the vessel from a radial approach. The power turn Flex wire was advanced into the conus branch to serve as an anchor. A whisper wire was
advanced through the sheath and into the proximal right coronary artery. There was poor wire was able to traverse the stenotic vessel and enter the distal RCA with relative ease.
The 95% proximal lesion was predilated with a 2.0 x 12 semi-compliant balloon to 12 rené. The semicompliant balloon was withdrawn and a 4.0 x 15 noncompliant balloon was advanced. The lesion was predilated to 12 rené with good expansion. Because of
the massive size of the vessel, it was clear that there was no available coronary artery stent that would satisfy the required diameter. At this point, I left the cardiac catheterization laboratory and entered the vascular surgery laboratory.
After examining the stock of available stents, the only appropriately sized stent was a Viabahn 6.0 x 19. All other open cell stents had a minimal length of 39 mm which would drastically exceed the amount of stent required.
The Viabahn stent is typically delivered over a 0.035 wire. This is highly irregular for a coronary artery. In an attempt to avoid placing a 0.035 wire in the coronary artery, we made the decision to upgrade the support of the coronary wire with
possible corrie wire. A 0.014 quick cross microcatheter was advanced over the whisper wire into the distal RCA. The whisper wire was withdrawn and an extra-support wire was advanced into the distal RCA with ease. The microcatheter was withdrawn.
The Viabahn stent was then loaded onto the extra-support wire and into the 7 Finnish catheter. Unfortunately, the Viabahn stent had immediate difficulty within the 7 Finnish system. The stent was withdrawn and the power turn flex corrie wire was
removed. The Viabahn system was reintroduced and did progress to the distal third of the catheter, though there was significant difficulty in advancing due to the gap between the stent balloon lumen (0.035) and the coronary wire (0.014). There was
also considerable introduction of air into the guide with the movement of the stent. Ultimately, the decision was made to remove this stent from the 7 Finnish system and reapproach with a larger system from a femoral access point.
The right common femoral artery was accessed using a micropuncture kit under ultrasound guidance. Angiography confirmed excellent position of the arteriotomy. The micropuncture sheath was removed and an 8 Finnish 23 cm sheath was advanced into the
right common femoral artery. An 8 Finnish JR4 guiding catheter was prepped on the back table. At this time, we took the opportunity to confirm that the Viabahn stent would traverse through this catheter with relative ease. Once we were satisfied
with our ability to deliver the stent through this catheter, the catheter was advanced into the ascending aorta over a J-wire through the right common femoral approach. The 7 Finnish JR4 guiding catheter was changed backwards to allow the 8 Finnish
catheter to engage as we had not yet sacrificed wire position from the 7 Finnish guide. The whisper wire was advanced through the 8 Finnish guide and into the distal RCA. The 0.014 quick cross microcatheter was advanced over the whisper wire using a
wire pending technique. Low volume angiography confirmed placement in the distal RCA and the whisper wire was withdrawn. The extra-support wire was pulled back from the right coronary artery through the 7 Finnish sheath and reintroduced into the
right coronary artery through the 8 Finnish sheath and quick cross microcatheter. After securing our position in the distal RCA through the 8 Finnish system, the 7 Finnish guiding catheter was removed from the body.
The decision was made to perform 1 further predilation before introducing the stent. A 5.0 x 15 noncompliant balloon was advanced over the extra-support wire and into the proximal RCA. The lesion was dilated to 12 rené. The noncompliant balloon
was withdrawn.
The noncompliant balloon was removed and the Viabahn covered stent was advanced. The stent presented significant difficulty entering the vessel in spite of numerous predilation's. Thankfully, with some catheter manipulation, the stent was able to
slip past the predilated proximal RCA lesion. Meticulous care was taken positioning the stent in the proximal RCA, ensuring that the entire lesion was covered. We were satisfied with our position, the stent was deployed at 16 atmospheres
(nominal). The stent balloon was removed.
Initial angiography showed complete treatment of the 95% lesion with reduction in stenosis to 0%. This stent was well-positioned but clearly appeared slightly undersized for the proximal vessel. The decision was made to postdilated with a 7.0 x 20
noncompliant peripheral balloon. The 7.0 x 20 noncompliant balloon was advanced over the extra-support wire. Unfortunately, the nose of the balloon would not track over the wire into the coronary artery due to its rigid tip. We attempted several
maneuvers including deep cannulation as well as a corrie wire through the lumen of the balloon to allow to track over 2 wires. Unfortunately, neither of these maneuvers was successful.
With great trepidation, I made the decision to increase wire support with a 0.035 Harper wire. A 0.035 quick cross microcatheter was advanced over the extra-support wire and into the distal RCA. The extra-support wire was withdrawn and a Harper wire
was advanced into the distal RCA through the microcatheter. With the Harper wire J-tip safely in the distal RCA/RPL branch, the quick cross microcatheter was withdrawn. With the support of the Harper wire, the RCA guide was able to sit even more
deeply in the stented segment. With this position, the 7.0 x 20 peripheral noncompliant balloon was advanced into the proximal RCA. The guide was moved out of the stented segment and meticulous care was taken while positioning the noncompliant
balloon. When we were satisfied that the balloon was within the stented segment, the balloon was inflated to 12 rené (nominal). The noncompliant balloon was withdrawn and the catheter was reseated in the vessel. Angiography showed excellent stent
expansion and apposition in the proximal vessel. There was a new radiolucency immediately distal to the stent that was consistent with vessel pleating. The 0.035 quick cross microcatheter was advanced over the Harper wire and into the distal RCA.
The Harper wire was withdrawn and the extra-support wire was readvanced into the distal RCA. The quick cross microcatheter was withdrawn. Repeat angiography showed resolution of the vessel pleating.
Angiography was performed in orthogonal views, confirming good stent expansion and an excellent angiographic result. The coronary wire was withdrawn and the guide was disengaged from the artery. The catheter was removed over a standard J-wire.
Closure Device: Vascular band for the right radial artery, 8 Finnish Angio-Seal for the right common femoral artery.
Radiation (mGy): 1882.47
DAP (cm2.Gy): 166.03
Fluoroscopy time (minutes): 34.1
CONCLUSIONS
1. Right dominant circulation with a 95% lesion in the proximal margin of the giant right coronary artery with NELLIE II flow, status post successful, complex PCI ([place] Viabahn 6.0 x 19 covered stent, postdilated with a 7.0 x 20 noncompliant balloon)
with reduction in stenosis to 0%, restoring NELLIE-3 flow.
2. Moderately elevated filling pressures (LVEDP = 22 mmHg at 106.6 kg).
RECOMMENDATIONS:
1. Expectant management after cardiac catheterization via right radial and right common femoral approach.
2. Limited weight bearing on the right wrist for one week.
3. Antithrombotic therapy with clopidogrel and apixaban given need for therapeutic anticoagulation and antiplatelet therapy.
4. Aggressive secondary prevention with high-dose, high potency statin. Goal LDL <55.
5. OMT/GDMT as hemodynamics will tolerate.
6. Referral to cardiac rehab.
Copy to: Melany Taylor M.D., Kierra Plascencia PA-C, Giancarlo Cartwright M.D.
Kelby Servin, DO, FACC, FACP
[2025-05-16] MEDS: LIPITOR 40 MG PO (17:35)
--- NOTE | 2025-05-16 21:43 | PTCARENOTE ---
Received pt @ change of shift. AOOx3, resting in bed. VSS-- Afib on the monitor. Right radial site clean, dry and intact. Soft to touch, no ecchymosis or swelling present @ this time. Right groin oozing slightly-- marked for comparison. Soft to
touch, no ecchymosis or swelling @ present. Post cath IV fluids completed. Discussed plan of care with pt including EKG, labs, and chest Xray in morning. Pt verbalizes understanding. Plan of care ongoing. Call crocker within reach.
[2025-05-17] MEDS: TYLENOL 650 MG PO (00:48)
[2025-05-17] MEDS: MELATONIN 5 MG PO (00:48)
[2025-05-17 04:11] VITALS: BP 105/73
[2025-05-17 05:16] LABS: Hematocrit 36.1 % (39.0-52.0); Hemoglobin 12.0 g/dL (13.0-18.0); Mean Corp Hgb Conc. 33.2 g/dL (33.0-37.0); Mean Corpuscular Volume 93.3 fL (80.0-94.0); Nucleated Red Blood Cells % 0 % (-); Platelet Count 378 10^3/uL (130-400); Red Cell Dist. Width 13.2 % (11.5-14.5)
[2025-05-17 05:25] LABS: Blood Urea Nitrogen 19 mg/dl (9-20); Calcium 8.4 mg/dl (8.4-10.2); Carbon Dioxide 26 mmol/L (22-30); Chloride 107 mmol/L (98-107); Estimated Creatinine Clearance 87 ml/min; Glucose 117 mg/dl (70-99); Potassium 3.8 mmol/L (3.5-5.1); Sodium 135 mmol/L (135-145); eGFR > 60.00
[2025-05-17] MEDS: CARDIZEM CD 240 MG PO (07:58)
[2025-05-17] MEDS: PROTONIX 40 MG PO (07:58)
[2025-05-17] MEDS: PLAVIX 75 MG PO (07:58)
[2025-05-17] MEDS: ZESTRIL 10 MG PO (07:58)
[2025-05-17] MEDS: LOPRESSOR 100 MG PO (07:58)
[2025-05-17 08:12] VITALS: BP 94/76
--- NOTE | 2025-05-17 08:21 | W.PN.CD ---
Today's Communication / Plan
-
Antithrombotic therapy with clopidogrel and apixaban.
Discharge planning.
Impression / Plan
-
Impression/Plan: 69M with persistent atrial fibrillation (on apixaban), hypertension, hypercholesterolemia, dilated ascending aorta, obesity, and laparoscopic cholecystectomy with IOC and extensive lysis of adhesions on 04/29/2025 presented with
NSTEMI.
Primary vice president of instruction: Dr. Cartwright
#NSTEMI
-Acute, risk to life.
-Troponin peaked at 9.42.
-EKG shows rate controlled AF, inferior infarct, age undetermined.
-S/P complex PCI of the 95% lesion in the proximal giant RCA ([place] Viabahn 6.0 x 19 covered stent, post dilated with a 7.0 x 20 peripheral NC balloon) with reduction in stenosis to 0%, restoring NELLIE III flow.
-Antithrombotic therapy with clopidogrel and apixaban for at least 12 months, possibly longer at the discretion of the primary outpatient vice president of instruction.
-Continue statin, BB, ACEI.
#Persistent atrial fibrillation
-Currently in AF.
-Rate controlled on diltiazem 240 mg (added last admission) and metoprolol tartrate 100 mg twice daily.
-Previously paroxysmal, likely has been atrial fibrillation since OV 03/29/2025.
-CHADS2-Vasc = 2-3 (HTN, Age x1, vascular disease?).
-Therapeutic anticoagulation with apixaban.
#Cholecystitis/choledocholithiasis
-Acute.
-s/p laparoscopic cholecystectomy and extensive lysis of adhesions 04/29/[address] Nguyen & ERCP 05/02/2025.
-Denies abdominal pain.
#Hypertension
-Chronic and stable.
#Dilated ascending aorta
-Chronic, stable (4.1-4.2 cm).
-Continue metoprolol.
#Tobacco use
-Chronic, ongoing.
-Cessation recommended.
#Dispo
-IVU status.
-Full code.
-Discharge planning.
Subjective/Interval History:
Cath yesterday shows a 95% lesion in the proximal margin of a giant RCA. The artery was too big for any commercially available coronary stent and was subsquently treated with a [place] Viabahn 6.0 x 19 peripheral covered stent as this was the only
stent available at an appropriate size (all open cell stents were far too long, minimum of 39 mm length). The stent was post dilated with a 7.0 peripheral NC balloon with reduction in stenosis to 0%, restoring NELLIE-III flow.
Overnight, no acute events.
No subjective complaints.
DATA:
Cardiac Catheterization/PCI, 05/16/2025:
CONCLUSIONS
1. Right dominant circulation with a 95% lesion in the proximal margin of the giant right coronary artery with NELLIE II flow, status post successful, complex PCI ([place] Viabahn 6.0 x 19 covered stent, postdilated with a 7.0 x 20 noncompliant balloon)
with reduction in stenosis to 0%, restoring NELLIE-3 flow.
2. Moderately elevated filling pressures (LVEDP = 22 mmHg at 106.6 kg).
TTE 04/23/25:
SUMMARY
1. Limited study to evaluate LVEF.
2. Normal biventricular size and systolic function without regional wall motion abnormalities. EF 55%.
3. Mild to moderate mitral regurgitation.
4. Aortic valve is thickened but not fully evaluated with Doppler flow to assess for stenosis. It does appear to open well.
5. Compared to the prior on 04/11/2025, mild to moderate mitral regurgitation is seen.
Transthoracic echocardiogram, 04/15/2025:
SUMMARY
1. Normal biventricular size and systolic function without regional wall motion abnormality.
2. No significant valve disease.
3. Dilated aortic root and ascending aorta (4.1 cm and 4.2 cm respectively).
4. Compared to the prior on 09/03/2023, mild to moderate mitral digitation is no longer seen.
Physical Exam
Vital Signs/Labs
Vital Signs
Temp Pulse Resp BP Pulse Ox
36.3 C 78 18 111/84 97
05/17/25 08:13 05/17/25 08:13 05/17/25 08:13 05/16/25 23:06 05/17/25 08:13
05/15/25 05/16/25 05/17/25
11:59 11:59 11:59
Actual Weight 107.9 kg 106.9 kg
05/17/25 04:22
05/17/25 04:21
APTT 88.7 Sec (23.4-35.0) H 05/16/25 04:16
Triglycerides 66 mg/dl (10-149) 05/14/25 03:49
LDL Cholesterol, Calc 45 mg/dl 05/14/25 03:49
VLDL Cholesterol, Calc 13 mg/dl (0-30) 05/14/25 03:49
HDL Cholesterol 24 mg/dl 05/14/25 03:49
LAB Results
05/14/25 05/14/25 05/15/25
16:15 22:54 05:11
Troponin I 4.600 H* 3.940 H* 3.780 H*
05/15/25
07:30
Troponin I Cancelled
Physical Exam
Constitutional: No acute distress and Comfortable
EENT: Anicteric and Moist mucous membranes
Cardiovascular: Pedal edema is absent, JVD pressure is normal, Rhythm/rate is irregular, S1S2 is normal and Murmur/rub/gallop absent
Respiratory: Respiratory effort normal, Lungs clear to auscul., Wheeze Absent, Crackles Absent and Rhonchi Absent
GI: Soft, Distention absent, Flat, Non tender and Normal bowel sounds
Neuro/Psych: AO x 3
Other: Cath Site (Right radial and right common femoral access sites are C/D/I.)
Data Reviewed
-
Date of Service: May 17, 2025
Medical Decision Making: Reviewed Test Results, Independent Historian Assessment and Test Interpretation
EKG: Tracing Personally Visualized and interpreted and Report Reviewed by me
Echo: Tracing Personally Visualized and interpreted and Report Reviewed by me
Medical Tests (PFT, Pathology etc): Image Personally Visualized and interpreted, Report Reviewed by me, Discussed with Physician, Discussed with Patient and Discussed with Family
Labs: Labs Reviewed by me
Old Records: Reviewed
--- NOTE | 2025-05-17 09:16 | PTCARENOTE ---
Pt ambulating in room, denies pain, he remains in A-fib with a controlled HR in70's.
[2025-05-17 09:21] VITALS: BP 117/85
[2025-05-17 10:59] VITALS: BP 113/82
--- NOTE | 2025-05-17 11:36 | W.PN.HOSP.TC ---
Today's Communication/Plan
-
dc
Assessment / Plan
Assessment / Plan
69yo M with PMHx of Afib on Eliquis, HTN, HLD, GERD, cholecystectomy 2 weeks ago with intraOP choledocholithiasis removed with ERCP came with sudden onset of chest pain and elevated troponin, consistent with NSTEMI. S/P complex PCI of the 95% lesion
in the proximal giant RCA (Buena Viabahn 6.0 x 19 covered stent, post dilated with a 7.0 x 20 peripheral NC balloon) with reduction in stenosis to 0%, restoring NELLIE III flow on 05/16/25
COnt Plavix/Eliquis. Switch PPI to Pepcid to avoid interaction with Plavix, no bear weight on RUE until seen by doctor. Cardiac rehab.
A/P:
#NSTEMI
ASA, statin, BB
Heparin drip
Serial troponin peakied at 9.46, EKG without overt ST elvations, however TWI in inferior leads
Echo: EF 55%, mild-moderate MR, AV thickening
Cardiology consult: S/P complex PCI of the 95% lesion in the proximal giant RCA (Buena Viabahn 6.0 x 19 covered stent, post dilated with a 7.0 x 20 peripheral NC balloon) with reduction in stenosis to 0%, restoring NELLIE III flow on 05/16/25
COnt Plavix/Eliquis. Switch PPI to Pepcid to avoid interaction with Plavix, no bear weight on RUE until seen by doctor. Cardiac rehab.
LDL 45
HgbA1c 5.8%
#Persistent Afib
restart Eliquis after completion of heparin drip
telemetry
Rate/rhythm control as per card
#Leukocytosis
improving off Abx
no respiratory, urinary or GI symptoms
Abd non-tender and postOP site healing well without redness or pain, LFT WNL
CHest XR and UA unremarkable
COVID-19 and Influenza PCR neg
#Nicotine dependency
Counselled on cessation
Nicoderm
#HLD
#Essential HTN
#PUD
cont home meds, HCTZ stopped 2/2 hyponatremia on admission
DVT ppx on hep drip
Full code
I have spent at least 36min reviewing chart, test rtesults, communication with consultants and providing direct patient care
Anticipated Discharge: Today
Subjective/Interval History
-
Date of Service: May 17, 2025
Objective Data
-
Labs:
Laboratory Results
05/17/25 05/17/25
04:21 04:22
WBC 12.7 H
Hgb 12.0 L
Hct 36.1 L
Plt Count 378
Sodium 135
Potassium 3.8
Chloride 107
Carbon Dioxide 26
BUN 19
Creatinine 1.0
Glucose 117 H
Calcium 8.4
Vital Signs:
Vital Signs
Temp Pulse Resp BP Pulse Ox
97.7 F 73 17 117/85 98
05/17/25 10:57 05/17/25 10:57 05/17/25 10:57 05/17/25 09:21 05/17/25 10:57
I&O
05/16/25 05/17/25 05/18/25
06:59 06:59 06:59
Intake Total 864 / 864
Output Total 450 / 450
Balance 414 / 414
Review of Systems
-
History Source: Patient
All other systems: Reviewed and negative
Physical Exam
-
General: No Apparent Distress
HEENT: Normocephalic
Respiratory: Clear to Auscultation
Cardiac: Irregular Rhythm
GI: Soft, Nontender and Nondistended
Neuro: Awake, Alert, Oriented and AO x 3
Psych: Calm
--- NOTE | 2025-05-17 11:39 | W.DCSUMMARY ---
Discharge Summary
Discharge Data
Date of Admission: 05/14/25
Date of Discharge: 05/17/25
-
Pending Results: No
Hospital Course
69yo M with PMHx of Afib on Eliquis, HTN, HLD, GERD, cholecystectomy 2 weeks ago with intraOP choledocholithiasis removed with ERCP came with sudden onset of chest pain and elevated troponin, consistent with NSTEMI. S/P complex PCI of the 95% lesion
in the proximal giant RCA ([place]arlan Viabahn 6.0 x 19 covered stent, post dilated with a 7.0 x 20 peripheral NC balloon) with reduction in stenosis to 0%, restoring NELLIE III flow on 05/16/25
COnt Plavix/Eliquis. Switch PPI to Pepcid to avoid interaction with Plavix, no bear weight on RUE until seen by doctor. Cardiac rehab.
I have spent at least 36min reviewing chart, test rtesults, communication with consultants and providing direct patient care
Patient was managed for:
#NSTEMI
#Persistent Afib
#Leukocytosis
#Nicotine dependency
#HLD
#Essential HTN
#PUD
Discharge Plan
-
Patient Disposition: Home (Routine Discharge)
Discharge Diagnosis/Procedures: Angioplasty and stent to Right Coronary artery
Diet: Low Cholesterol
Activity: Other activity
Additional Activity: do not bear weight on R arm
Driving Restrictions: Not until seen by your Dr
Other Services: Cardiac Rehab
Stand Alone Forms: DC Instructions- Cath/EP Lab
Referrals:
[facility] [Outside] - 06/06/25 10:00 am
Referral Note: Cardiac Rehab Orientation appointment is on June 06 at 10am.
The Cardiac Rehab gym is located on the first floor of the [facility].
Ashley Alvarez CRNP [Specified Professional Personl, Cardiology] - 05/30/25 1:40 pm
Kierra Plascencia PA [Family Provider, [facility]]
Prescriptions:
New
clopidogrel 75 mg Tablet
75 mg PO DAILY Qty: 30 0RF
lisinopril 10 mg Tablet
10 mg PO DAILY Qty: 30 0RF
famotidine 20 mg tablet
20 mg PO BID Qty: 60 0RF
Continued
Eliquis 5 mg Tablet
5 mg PO BID
atorvastatin [Lipitor] 20 mg Tablet
20 mg PO QPM
metoprolol tartrate [Lopressor] 100 mg Tablet
100 mg PO BID
diltiazem HCl 240 mg Capsule,Extended Release 24hr
240 mg PO DAILY Qty: 30 0RF
Discontinued
lisinopril-hydrochlorothiazide 10-12.5 mg tablet
1 tab PO DAILY
pantoprazole 40 mg tablet,delayed release (DR/EC)
40 mg PO BID Qty: 180 0RF
Discharge Orders:
Discharge Patient (As Directed); Ordered 05/17/25
Ordered By: Nav Hightower
Care Plan Goals
Care Plan Goals:
Problem: Readiness for enhanced knowledge related to diagnosis and treatment plan
Goal: Understand your diagnosis and treatment plan needs, including medications if applicable.
Instructions: Know your diagnosis, underlying causes and treatment plan options, including medications if applicable. Consult with your health care team to learn about your diagnosis and treatment plan, including medications if applicable.
Problem: Readiness for enhanced knowledge related to diagnosis and treatment plan
Goal: Understand your diagnosis and treatment plan needs, including medications if applicable.
Instructions: Know your diagnosis, underlying causes and treatment plan options, including medications if applicable. Consult with your health care team to learn about your diagnosis and treatment plan, including medications if applicable.
Discharge Date and Time
Print Language: AUSTRIAN
--- NOTE | 2025-05-17 12:05 | PTCARENOTE ---
D/C instructions reviewed with Pt and his , they expressed understanding.
== END 2025-05-17 12:31 | disposition home or self-care (01) | DRG 322 ==
LOC: IVU 09:07
PROVIDERS: Emergency Medicine; Internal Medicine; Internal Medicine Cardiovascular Disease; Nurse Practitioner; Nurse Practitioner Family; Nurse Practitioner Gerontology; ADMITTING PHYSICIAN Internal Medicine; ATTENDING PHYSICIAN Internal Medicine; CONSULT PHYSICIAN Internal Medicine Cardiovascular Disease; EMERGENCY PHYSICIAN Emergency Medicine; FAMILY PHYSICIAN Physician Assistant
PROC: 4A023N7 Measurement of Cardiac Sampling and Pressure, Left Heart, Percutaneous Approach (ICD-10-PCS; 2025-05-16)
PROC: B2111ZZ Fluoroscopy of Multiple Coronary Arteries using Low Osmolar Contrast (ICD-10-PCS; 2025-05-16)
PROC: 02703DZ Dilation of Coronary Artery, One Artery with Intraluminal Device, Percutaneous Approach (ICD-10-PCS; 2025-05-16)
DX: I21.4 Non-ST elevation (NSTEMI) myocardial infarction (principal); I48.19 Other persistent atrial fibrillation; E87.1 Hypo-osmolality and hyponatremia; D72.829 Elevated white blood cell count, unspecified; I25.10 Atherosclerotic heart disease of native coronary artery without angina pectoris; F17.200 Nicotine dependence, unspecified, uncomplicated; E78.00 Pure hypercholesterolemia, unspecified; I10 Essential (primary) hypertension; E66.9 Obesity, unspecified; I77.810 Thoracic aortic ectasia; I77.89 Other specified disorders of arteries and arterioles; K21.9 Gastro-esophageal reflux disease without esophagitis; Z68.33 Body mass index [BMI] 33.0-33.9, adult; Z90.49 Acquired absence of other specified parts of digestive tract; Z79.01 Long term (current) use of anticoagulants; Z82.49 Family history of ischemic heart disease and other diseases of the circulatory system; Z87.11 Personal history of peptic ulcer disease
CPT/HCPCS: 71046; 80048; 80053; 80061; 81003; 81015; 83036; 84443; 84484; 85025; 85027; 85347; 85730; 93005; 93308; 93458; 96365; 96366; 99152; 99153; 99284; C1725; C1760; C1769; C1874; C1887; C1894; C9600; Q9967

== ENCOUNTER 2025-06-21 08:30 | Outpatient (RCR) | payer MEDICARE, OTHER, SELFPAY | END 2025-06-21 23:59 | disposition home or self-care (01) | LOC: CRHB 08:30 | PROVIDERS: ATTENDING PHYSICIAN Student in an Organized Health Care Education/Training Program | DX: I25.2 Old myocardial infarction (principal); I25.10 Atherosclerotic heart disease of native coronary artery without angina pectoris (principal); Z95.5 Presence of coronary angioplasty implant and graft | CPT/HCPCS: G0422; G0423 ==